=== PATIENT | female | born 1995 | race Caucasian/White ===

== ENCOUNTER 2017-07-26 05:08 | Inpatient (IN) | payer MEDICAID ==
[2017-07-26] MEDS: Lactated Ringers 1,000 ML IV SCH ×4 (06:40→12:18)
[2017-07-26] MEDS ORDERED: Water For Irrigation,Sterile 1,000 ML Container IRR PRN (06:49)
[2017-07-26] MEDS ORDERED: Methylergonovine 0.2 MG/1 ML Amp IM PRN (06:49)
[2017-07-26] MEDS ORDERED: Carboprost Tromethamine 250 MCG/1 ML Amp IM PRN (06:49)
[2017-07-26] MEDS ORDERED: Butorphanol 1 MG/ML SDV IVPUSH PRN (06:49)
[2017-07-26] MEDS ORDERED: Misoprostol 200 MCG Tab PO PRN (06:49)
[2017-07-26] MEDS ORDERED: Lidocaine 1% 50 ML MDV INJECT PRN (06:49)
[2017-07-26] MEDS ORDERED: Nalbuphine 10 MG/1 ML Vial IVPUSH PRN (06:49)
[2017-07-26] MEDS ORDERED: Sodium Chloride 0.9% 2.5 ML Syringe FLUSH PRN (06:49)
[2017-07-26] MEDS ORDERED: Sodium Chloride 0.9% 10 ML Syringe FLUSH PRN (06:49)
[2017-07-26] MEDS ORDERED: Oxytocin/0.9 % Sodium Chloride 30 UNIT/500 ML BAG IV SCH (07:00)
--- NOTE | 2017-07-26 07:44 | PCM.PREANE ---
Preanesthetic Assessment - Anesthesia/Transfusion/Family Hx Anesthesia History: Prior Anesthesia Without Reaction - Review of Systems General: No Symptoms Pulmonary: No Symptoms Cardiovascular: No Symptoms Gastrointestinal: No Symptoms Neurological: No Symptoms Other: Reports: None - Physical Assessment Height: 5 ft 2.5 in Weight: 77.111 kg ASA Class: 2 Mental Status: Alert & Oriented x3 Airway Class: Mallampati = 2 Dentition: Reports: Normal Dentition Thyro-Mental Finger Breadths: 3 Mouth Opening Finger Breadths: 3 ROM/Head Extension: Full Lungs: Clear to Auscultation, Normal Respiratory Effort Cardiovascular: Regular Rate, Regular Rhythm - Lab Values: Laboratory Last Values WBC 14.95 K/uL (4.0-11.0) H 07/26/17 06:49 RBC 4.27 M/uL (4.30-5.90) L 07/26/17 06:49 Hgb 12.5 g/dL (12.0-16.0) 07/26/17 06:49 Hct 37.3 % (36.0-46.0) 07/26/17 06:49 MCV 87.4 fL (80.0-98.0) 07/26/17 06:49 MCH 29.3 pg (27.0-32.0) 07/26/17 06:49 MCHC 33.5 g/dL (31.0-37.0) 07/26/17 06:49 RDW Std Deviation 44.3 fl (28.0-62.0) 07/26/17 06:49 RDW Coeff of [place] 14 % (11.0-15.0) 07/26/17 06:49 Plt Count 285 K/uL (150-400) 07/26/17 06:49 MPV 12.30 fL (7.40-12.00) H 07/26/17 06:49 Nucleated RBC % 0.0 /100WBC 07/26/17 06:49 Nucleated RBCs # 0 K/uL 07/26/17 06:49 - Allergies Allergies/Adverse Reactions: Allergies Allergy/AdvReac Type Severity Reaction Status Date / Time No Known Allergies Allergy Verified 05/02/14 15:57 - Acknowledgements Anesthesia Type Planned: Epidural Pt an Appropriate Candidate for the Planned Anesthesia: Yes Alternatives and Risks of Anesthesia Discussed w Pt/Guardian: Yes Pt/Guardian Understands and Agrees with Anesthesia Plan: Yes PreAnesthesia Questionnaire HEENT History: Reports: None Cardiovascular History: Reports: None Respiratory History: Reports: None Gastrointestinal History: Reports: GERD Genitourinary History: Reports: None SHACTOR History: Reports: LMP (Approximate): Musculoskeletal History: Reports: None Neurological History: Reports: None Psychiatric History: Reports: None Endocrine/Metabolic History: Reports: Obesity/BMI 30+ Hematologic History: Reports: None Immunologic History: Reports: None Oncologic (Cancer) History: Reports: None Dermatologic History: Reports: None - Infectious Disease History Infectious Disease History: Reports: None - CURRENT (IN HOUSE) MEDS Current Meds: Current Medications Butorphanol Tartrate (Stadol) 1 mg IVPUSH Q1H PRN PRN Reason: Pain Carboprost Tromethamine (Hemabate Ds) 250 mcg IM ASDIRECTED PRN PRN Reason: Post Hemorrhage Lactated Ringer's (Ringers, Lactated) 1,000 mls @ 150 mls/hr IV ASDIRECTED EMORY Oxytocin/Sodium Chloride (Oxytocin 30 Unit/500 Ml-Ns) 30 unit in 500 mls @ 500 mls/hr IV TITRATE EMORY Lidocaine HCl (Xylocaine 1%) 50 ml INJECT .ONCE PRN PRN Reason: Laceration repair Methylergonovine Maleate (Methergine) 0.2 mg IM ASDIRECTED PRN PRN Reason: Post Hemorrhage Misoprostol (Cytotec) 200 mcg PO .ONCE PRN PRN Reason: Post Hemorrhage Nalbuphine HCl (Nubain) 10 mg IVPUSH Q1H PRN PRN Reason: Pain (severe 7-10) Sodium Chloride (Saline Flush) 10 ml FLUSH ASDIRECTED PRN PRN Reason: Keep Vein Open Sodium Chloride (Saline Flush) 2.5 ml FLUSH ASDIRECTED PRN PRN Reason: Keep Vein Open Sterile Water (Sterile Water For Irrigation) 1,000 ml IRR ASDIRECTED PRN PRN Reason: delivery
[2017-07-26] MEDS ORDERED: Ropivacaine HCl/PF 100 ML ONE (07:45)
[2017-07-26] MEDS ORDERED: fentaNYL 100 MCG/2 ML SDV ONE (07:45)
[2017-07-26] MEDS ORDERED: Witch Hazel Medicated Pads 40/Jar TOP PRN (13:38)
[2017-07-26] MEDS ORDERED: Docusate Sodium 100 MG Cap PO PRN (13:38)
[2017-07-26] MEDS ORDERED: Aluminum Hydroxide/Magnesium Hydroxide/Simethicone Susp 30 ML Cup PO PRN (13:38)
[2017-07-26] MEDS ORDERED: Ibuprofen 400 MG Tab PO PRN (13:38)
[2017-07-26] MEDS ORDERED: Acetaminophen 500 MG Tab PO PRN ×2 (13:38)
[2017-07-26] MEDS ORDERED: Bisacodyl 10 MG Supp RECTAL PRN (13:38)
[2017-07-26] MEDS ORDERED: Lanolin 100% Cream 7 GM Tube TOP PRN (13:38)
[2017-07-26] MEDS ORDERED: Benzocaine/Menthol 20%-0.5% Spray 78 GM Cannister TOP PRN (13:38)
[2017-07-26] MEDS ORDERED: Ondansetron 4 MG/2 ML SDV IVPUSH PRN (13:38)
[2017-07-26] MEDS: Ibuprofen 800 MG Tab PO PRN (14:24)
[2017-07-26] MEDS: oxyCODONE 5 MG Tab PO PRN ×2 (17:43→20:56)
--- NOTE | 2017-07-26 18:08 | OR ---
SURGEON: Bhakti Luevano M.D. DATE OF PROCEDURE: 07/26/2017 PREOPERATIVE DIAGNOSES: 1. 39 and 1 week intrauterine . 2. Active labor. POSTOPERATIVE DIAGNOSES: 1. 39 and 1 week intrauterine . 2. Active labor. PROCEDURE: Spontaneous vaginal delivery, intact perineum. ESTIMATED BLOOD LOSS: 300 mL. ANESTHESIA: Epidural. COMPLICATIONS: None known. FINDINGS: Term male, score 8 at 1 minute, 9 at 5 minutes. Weight is pending. Spontaneous delivery, intact placenta, 3-vessel cord. DISPOSITION: Infant to nursery and mom in LDRP, stable. PROCEDURE DETAILS: Magalie is a 22-year-old G2, P1-0-0-1 at 39 and 1 week's gestation who presented on the morning of 07/26/2017 with regular contractions. On initial examination, she was found to be 4 cm. heart tones were 120s with variability. She was admitted and routine labs were drawn. She progressed to 7 cm within the hour, was requesting regional anesthesia. Underwent this satisfactorily and became more comfortable. She continued to progress through the morning hours and shortly after 11:00 a.m., was found to be complete, 100% effaced, 0 station. She is group B strep negative; therefore, amniotomy was performed. Clear fluid was returned. The patient then continued to progress to a +2 station, began pushing efforts, and pushed adequately. Once at a +3 station, I was called for delivery. Upon my arrival, the patient was placed in modified dorsal lithotomy position, prepped and draped in the usual aseptic manner. Continued with pushing efforts, was able to deliver the infant's head atraumatically spontaneously, followed by anterior shoulder, posterior shoulder, and remainder of body without difficulty. The infant's oropharynx and nares were bulb suctioned. Cord was clamped x2 and cut. was handed off to his mother with attending nursing staff at her side. Cord arterial, cord venous, cord blood sampling was obtained. Light suprapubic pressure was applied while the placenta was delivered spontaneously intact. Vigorous fundal uterine massage was then applied while 30 units of Pitocin was delivered in 500 mL of IV fluid. Upon inspection of cervix, vaginal sidewalls, and perineum, these were found to be intact. Uterus remained firm. Hemostasis was evident. Sponge count was correct. The patient will remain in LDRP and infant in nursery. WILL / OMAR /[id number]
[2017-07-27] MEDS: Ibuprofen 800 MG Tab PO PRN ×2 (01:28→10:05)
--- NOTE | 2017-07-27 07:14 | PCM48HPAN ---
Post Anesthesia Note - EVALUATION WITHIN 48HRS OF ANESTHETIC Vital Signs in Normal Range: Yes Patient Participated in Evaluation: Yes Respiratory Function Stable: Yes Airway Patent: Yes Cardiovascular Function Stable: Yes Hydration Status Stable: Yes Pain Control Satisfactory: Yes Nausea and Vomiting Control Satisfactory: Yes Mental Status Recovered: Yes
--- NOTE | 2017-07-27 08:15 | PCM.PNPP ---
- General Info Date of Service: 07/27/17 Functional Status: Reports: Pain Controlled, Tolerating Diet, Ambulating, Urinating - Review of Systems General: Reports: No Symptoms HEENT: Reports: No Symptoms Pulmonary: Reports: No Symptoms Cardiovascular: Reports: No Symptoms Gastrointestinal: Reports: No Symptoms Genitourinary: Reports: No Symptoms Musculoskeletal: Reports: No Symptoms Skin: Reports: No Symptoms Neurological: Reports: No Symptoms Psychiatric: Reports: No Symptoms - Patient Data Vital Signs - Most Recent: Last Vital Signs Temp 37 C 07/26/17 19:42 Pulse 85 07/26/17 19:42 Resp 20 07/26/17 19:42 BP 119/65 07/26/17 19:42 Pulse Ox 100 07/26/17 19:42 Weight - Most Recent: 77.111 kg Lab Results - Last 24 Hours: Laboratory Results - last 24 hr 07/27/17 Range/Units 05:15 Hgb 10.3 L (12.0-16.0) g/dL Hct 31.4 L (36.0-46.0) % Med Orders - Current: Current Medications Acetaminophen (Tylenol Extra Strength) 500 mg PO Q4H PRN PRN Reason: Pain Acetaminophen (Tylenol Extra Strength) 1,000 mg PO Q4H PRN PRN Reason: Pain Al Hydroxide/Mg Hydroxide (Mag-Al Plus) 30 ml PO Q8H PRN PRN Reason: Heartburn Benzocaine/Menthol (Dermoplast Pain Relief 20%-0.5% [place]) 78 gm TOP ASDIRECTED PRN PRN Reason: Perineal Comfort Measure Bisacodyl (Dulcolax) 10 mg RECTAL .ONCE PRN PRN Reason: Constipation Carboprost Tromethamine (Hemabate Ds) 250 mcg IM ASDIRECTED PRN PRN Reason: Post Hemorrhage Docusate Sodium (Colace) 100 mg PO BID PRN PRN Reason: Constipation Emollient Ointment (Lansinoh Hpa) 0 gm TOP ASDIRECTED PRN PRN Reason: Sore Nipples Lactated Ringer's (Ringers, Lactated) 1,000 mls @ 150 mls/hr IV ASDIRECTED EMORY Last Admin: 07/26/17 12:18 Dose: 150 mls/hr Oxytocin/Sodium Chloride (Oxytocin 30 Unit/500 Ml-Ns) 30 unit in 500 mls @ 500 mls/hr IV TITRATE EMORY Ibuprofen (Motrin) 400 mg PO Q4H PRN PRN Reason: Pain Ibuprofen (Motrin) 800 mg PO Q6H PRN PRN Reason: Pain Last Admin: 07/27/17 01:28 Dose: 800 mg Methylergonovine Maleate (Methergine) 0.2 mg IM ASDIRECTED PRN PRN Reason: Post Hemorrhage Misoprostol (Cytotec) 200 mcg PO .ONCE PRN PRN Reason: Post Hemorrhage Ondansetron HCl (Zofran) 4 mg IVPUSH Q6H PRN PRN Reason: Nausea/Vomiting Oxycodone HCl (Oxycodone) 5 mg PO Q2H PRN PRN Reason: Pain Last Admin: 07/26/17 20:56 Dose: 5 mg Sodium Chloride (Saline Flush) 10 ml FLUSH ASDIRECTED PRN PRN Reason: Keep Vein Open Sodium Chloride (Saline Flush) 2.5 ml FLUSH ASDIRECTED PRN PRN Reason: Keep Vein Open Witch Kristie (Tucks) 1 pad TOP ASDIRECTED PRN PRN Reason: comfort care Discontinued Medications Butorphanol Tartrate (Stadol) 1 mg IVPUSH Q1H PRN PRN Reason: Pain Fentanyl (Sublimaze) Confirm Administered Dose 100 mcg .ROUTE .STK-MED ONE Stop: 07/26/17 07:46 Ropivacaine (Naropin 0.2%) Confirm Administered Dose 100 mls @ as directed .ROUTE .STK-MED ONE Stop: 07/26/17 07:46 Lidocaine HCl (Xylocaine 1%) 50 ml INJECT .ONCE PRN PRN Reason: Laceration repair Nalbuphine HCl (Nubain) 10 mg IVPUSH Q1H PRN PRN Reason: Pain (severe 7-10) Sterile Water (Sterile Water For Irrigation) 1,000 ml IRR ASDIRECTED PRN PRN Reason: delivery Last Admin: 07/26/17 13:10 Dose: 1,000 ml - Interaction Disposition, : [place] to Nursery Feeding: Breastfed Infant; Nursed Well Support Person: Mother, Significant Other - Recovery Exam Fundal Tone: Firm Fundal Level: 1 Fingerbreadths Below Umbilicus Fundal Placement: Midline Lochia Amount: Scant Lochia Color: Rubra/Red Perineum Description: Intact, Minimal Bruising/Swelling Episiotomy/Laceration: None Bladder Status: Voiding Urinary Elimination: Voided - Exam General: Alert, Oriented Neck: Supple Lungs: Normal Respiratory Effort GI/Abdominal Exam: Soft, Non-Tender, No Organomegaly, No Distention Extremities: Normal Inspection, Non-Tender, No Pedal Edema Skin: Warm, Dry, Intact Neurological: No New Focal Deficit Psy/Mental Status: Alert, Normal Affect, Normal Mood - Problem List & Annotations (1) Vaginal delivery SNOMED Code(s): 925752444 Code(s): O80 - ENCOUNTER FOR FULL-TERM UNCOMPLICATED DELIVERY Status: Acute Current Visit: Yes - Problem List Review Problem List Initiated/Reviewed/Updated: Yes - Assessment Assessment:: PPD#1 after , stable, minimal lochia, minimal pain. well. Anticipate discharge this afternoon - Plan Plan:: Discharge instructions reviewed, she may use ibuprofen as needed for pain, cramping. Continue vitamins while .
[2017-07-27] MEDS: oxyCODONE 5 MG Tab PO PRN (14:22)
== END 2017-07-27 16:20 | disposition home or self-care (01) | DRG 775 ==
LOC: MW.OBCHECK 05:08 → MW.OB 05:09 → MW.OBCHECK 06:49 → MW.OB 06:49 → OBSVTOIN 13:16
PROVIDERS: ADMIT Obstetrics & Gynecology; ATTEND Obstetrics & Gynecology
PROC: 10E0XZZ Delivery of Products of Conception, External Approach (ICD-10-PCS; principal; 2017-07-26)
PROC: 10907ZC Drainage of Amniotic Fluid, Therapeutic from Products of Conception, Via Natural or Artificial Opening (ICD-10-PCS; 2017-07-26)
DX: O80 Encounter for full-term uncomplicated delivery (principal); Z3A.39 39 weeks gestation of pregnancy; Z37.0 Single live birth
CPT/HCPCS: 36415; 51702; 59025; 59409; 85014; 85018; 85027; 86850; 86900; 86901; A9270-GY; J2795; J3010; J7120

== ENCOUNTER 2018-10-23 17:46 | Emergency (ER) | payer MEDICAID ==
[2018-10-23] MEDS ORDERED: Sodium Chloride 0.9% 10 ML Syringe FLUSH PRN (18:03)
[2018-10-23] MEDS ORDERED: Sodium Chloride 0.9% 1,000 ML IV ONE (18:03)
[2018-10-23] MEDS ORDERED: Ondansetron 4 MG/2 ML SDV IVPUSH ONE (18:03)
[2018-10-23] MEDS ORDERED: Sodium Chloride 0.9% 2.5 ML Syringe FLUSH PRN (18:03)
--- NOTE | 2018-10-23 18:08 | EDM.PDOC ---
ED HPI GENERAL MEDICAL PROBLEM - General Chief Complaint: Headache Stated Complaint: VOMITING Time Seen by Provider: 10/23/18 18:07 Source of Information: Reports: Patient History Limitations: Reports: No Limitations - History of Present Illness INITIAL COMMENTS - FREE TEXT/NARRATIVE: HISTORY AND PHYSICAL: History of present illness: Patient is a 23-year-old male here with complaint of headache and vomiting. She states she has a history of migraines. She states her headache is getting better but she has not been able to keep anything down today and feels dehydrated. She denies visual changes, head injury, abdominal pain, diarrhea. Review of systems: As per history of present illness and below otherwise all systems reviewed and negative. Past medical history: As per history of present illness and as reviewed below otherwise noncontributory. Surgical history: As per history of present illness and as reviewed below otherwise noncontributory. Social history: No reported history of drug or alcohol abuse. Family history: As per history of present illness and as reviewed below otherwise noncontributory. Physical exam: General: Patient sitting comfortably in no acute distress and nontoxic appearing HEENT: Atraumatic, normocephalic, pupils reactive, negative for conjunctival pallor or scleral icterus, mucous membranes moist, throat clear, neck supple, nontender, trachea midline. No meningeal signs. Lungs: Clear to auscultation, breath sounds equal bilaterally, chest nontender. Heart: S1S2, regular, negative for clicks, rubs, or overt murmur. Abdomen: Soft, nondistended, nontender. Negative for masses or hepatosplenomegaly. Negative for costovertebral tenderness. Pelvis: Stable nontender. Genitourinary: Deferred. Rectal: Deferred. Extremities: Atraumatic, negative for cords or calf pain. Neurovascular unremarkable. Neuro: Awake, alert, oriented. Cranial nerves II through XII unremarkable. Cerebellum unremarkable. Motor and sensory unremarkable throughout. Exam nonfocal. Notes: Diagnostics: None Therapeutics: 1L NS IV 4mg Zofran IV 10mg Reglan IV Prescriptions: Impression: Headache, vomiting Plan: 1. Drink plenty of fluids. Alternate tylenol and motrin as needed. 2. Follow up with primary care provider 3. Return to ED as needed as discussed Definitive disposition and diagnosis as appropriate pending reevaluation and review of above. 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: Musculoskeletal History: Reports: None Neurological History: Reports: Migraines Psychiatric History: Reports: None Endocrine/Metabolic History: Reports: Obesity/BMI 30+ Hematologic History: Reports: None Immunologic History: Reports: None Oncologic (Cancer) History: Reports: None Dermatologic History: Reports: None - Infectious Disease History Infectious Disease History: Reports: None Social & Family History - Family History Family Medical History: Noncontributory - Tobacco Use Smoking Status *Q: Never Smoker - Caffeine Use Caffeine Use: Reports: Coffee - Recreational Drug Use Recreational Drug Use: No ED ROS GENERAL - Review of Systems Review Of Systems: ROS reveals no pertinent complaints other than HPI. - Physical Exam Exam: See Below (see dictation) Course - Vital Signs Last Recorded V/S: Last Vital Signs Temp 97.5 F 10/23/18 17:58 Pulse 115 H 10/23/18 17:58 Resp 18 10/23/18 17:58 BP 120/77 10/23/18 17:58 Pulse Ox 99 10/23/18 17:58 - Orders/Labs/Meds Orders: Active Orders 24 hr Category Date Time Status Sodium Chloride 0.9% [Saline Flush] Med 10/23/18 18:03 Active 10 ml FLUSH ASDIRECTED PRN Sodium Chloride 0.9% [Saline Flush] Med 10/23/18 18:03 Active 2.5 ml FLUSH ASDIRECTED PRN Saline Lock Insert [OM.PC] Stat Oth 10/23/18 18:03 Ordered Medication Orders Sodium Chloride (Saline Flush) 10 ml FLUSH ASDIRECTED PRN PRN Reason: Keep Vein Open Sodium Chloride (Saline Flush) 2.5 ml FLUSH ASDIRECTED PRN PRN Reason: Keep Vein Open Meds: Medications Generic Name Dose Route Start Last Admin Trade Name Freq PRN Reason Stop Dose Admin Sodium Chloride 10 ml 10/23/18 18:03 Saline Flush FLUSH ASDIRECTED PRN Keep Vein Open Sodium Chloride 2.5 ml 10/23/18 18:03 Saline Flush FLUSH ASDIRECTED PRN Keep Vein Open Discontinued Medications Generic Name Dose Route Start Last Admin Trade Name Lorena PRN Reason Stop Dose Admin Sodium Chloride 1,000 mls @ 999 mls/hr 10/23/18 18:03 10/23/18 18:17 Normal Saline IV 10/23/18 19:03 999 mls/hr STAT ONE Administration Metoclopramide HCl 10 mg 10/23/18 18:56 10/23/18 19:05 Reglan IV 10/23/18 18:57 10 mg ONETIME ONE Administration Ondansetron HCl 4 mg 10/23/18 18:03 10/23/18 18:17 Zofran IVPUSH 10/23/18 18:04 4 mg ONETIME ONE Administration Departure - Departure Time of Disposition: 19:09 Disposition: Home, Self-Care 01 Condition: Good Clinical Impression: Headache, Vomiting - Discharge Information Referrals: Ulises Valdez MD [Primary Care Provider] - Forms: ED Department Discharge Additional Instructions: The following information is given to patients seen in the emergency department who are being discharged to home. This information is to outline your options for follow-up care. We provide all patients seen in our emergency department with a follow-up referral. The need for follow-up, as well as the timing and circumstances, are variable depending upon the specifics of your emergency department visit. If you don't have a primary care physician on staff, we will provide you with a referral. We always advise you to contact your personal physician following an emergency department visit to inform them of the circumstance of the visit and for follow-up with them and/or the need for any referrals to a consulting specialist. The emergency department will also refer you to a specialist when appropriate. This referral assures that you have the opportunity for follow-up care with a specialist. All of these measure are taken in an effort to provide you with optimal care, which includes your follow-up. Under all circumstances we always encourage you to contact your private physician who remains a resource for coordinating your care. When calling for follow-up care, please make the office aware that this follow-up is from your recent emergency room visit. If for any reason you are refused follow-up, please contact the [facility] Emergency Department at and asked to speak to the emergency department charge nurse. TIGIST Mcginnis [facility] [address] [place] [address] [facility] [address] [place] [address] 1. Drink plenty of fluids. Alternate tylenol and motrin as needed. 2. Follow up with primary care provider 3. Return to ED as needed as discussed - My Orders Last 24 Hours: My Active Orders 10/23/18 18:03 Sodium Chloride 0.9% [Saline Flush] 10 ml FLUSH ASDIRECTED PRN Sodium Chloride 0.9% [Saline Flush] 2.5 ml FLUSH ASDIRECTED PRN Saline Lock Insert [OM.PC] Stat - Assessment/Plan Last 24 Hours: My Active Orders 10/23/18 18:03 Sodium Chloride 0.9% [Saline Flush] 10 ml FLUSH ASDIRECTED PRN Sodium Chloride 0.9% [Saline Flush] 2.5 ml FLUSH ASDIRECTED PRN Saline Lock Insert [OM.PC] Stat
[2018-10-23] MEDS ORDERED: Metoclopramide 10 MG/2 ML SDV IV ONE (18:56)
== END 2018-10-23 19:20 | disposition home or self-care (01) ==
LOC: MW.ED 17:46
DX: R51 Headache (principal); R11.10 Vomiting, unspecified
CPT/HCPCS: 96361; 96374; 96375; 99283; J2405; J2765; J7040

== ENCOUNTER 2018-11-13 11:04 | Emergency (ER) | payer MEDICAID ==
[2018-11-13] MEDS ORDERED: Ondansetron 4 MG/2 ML SDV IVPUSH ONE (11:19)
[2018-11-13] MEDS ORDERED: Sodium Chloride 0.9% 1,000 ML IV ONE (11:19)
--- NOTE | 2018-11-13 11:23 | EDM.PDOC ---
ED HPI GENERAL MEDICAL PROBLEM - General Chief Complaint: Gastrointestinal Problem Stated Complaint: STOMACH BUG Time Seen by Provider: 11/13/18 11:14 - History of Present Illness INITIAL COMMENTS - FREE TEXT/NARRATIVE: HISTORY AND PHYSICAL: History of present illness: Patient is a 23-year-old white female presented to a concern of nausea vomiting and dehydration she states her has had the same thing recently but has improved. She denies fever chills or other concern. Review of systems: As per history of present illness and below otherwise all systems reviewed and negative. Past medical history: As per history of present illness and as reviewed below otherwise noncontributory. Surgical history: As per history of present illness and as reviewed below otherwise noncontributory. Social history: No reported history of drug or alcohol abuse. Family history: As per history of present illness and as reviewed below otherwise noncontributory. Physical exam: HEENT: Atraumatic, normocephalic, pupils reactive, negative for conjunctival pallor or scleral icterus, mucous membranes dry, throat clear, neck supple, nontender, trachea midline. Lungs: Clear to auscultation, breath sounds equal bilaterally, chest nontender. Heart: S1S2, regular, negative for clicks, rubs, or JVD. Abdomen: Soft, nondistended, nontender. Negative for masses or hepatosplenomegaly. Negative for costovertebral tenderness. Pelvis: Stable nontender. Genitourinary: Deferred. Rectal: Deferred. Extremities: Atraumatic, negative for cords or calf pain. Neurovascular unremarkable. Neuro: Awake, alert, oriented. Cranial nerves II through XII unremarkable. Cerebellum unremarkable. Motor and sensory unremarkable throughout. Exam nonfocal. Diagnostics: CBC CMP hCG UA lipase Therapeutics: Saline 1 L bolus Zofran 4 mg IV Impression: #1 vomiting with dehydration Definitive disposition and diagnosis as appropriate pending reevaluation and review of above. Middle Abdomen Pain Score (Numeric/FACES): 7 - Related Data Allergies Allergy/AdvReac Type Severity Reaction Status Date / Time No Known Allergies Allergy Verified 11/13/18 11:11 Home Meds: Home Meds . 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: Musculoskeletal History: Reports: None Neurological History: Reports: Migraines Psychiatric History: Reports: None Endocrine/Metabolic History: Reports: Obesity/BMI 30+ Hematologic History: Reports: None Immunologic History: Reports: None Oncologic (Cancer) History: Reports: None Dermatologic History: Reports: None - Infectious Disease History Infectious Disease History: Reports: None Social & Family History - Family History Family Medical History: Noncontributory - Tobacco Use Smoking Status *Q: Never Smoker Second Hand Smoke Exposure: No - Caffeine Use Caffeine Use: Reports: Coffee - Recreational Drug Use Recreational Drug Use: No ED ROS GENERAL - Review of Systems Review Of Systems: ROS reveals no pertinent complaints other than HPI. ED EXAM, GENERAL - Physical Exam Exam: See Below (See dictation) Course - Vital Signs Last Recorded V/S: Last Vital Signs Temp 36.3 C 11/13/18 11:11 Pulse 99 11/13/18 11:11 Resp 18 11/13/18 11:11 BP 115/74 11/13/18 11:11 Pulse Ox 100 11/13/18 11:11 - Orders/Labs/Meds Orders: Active Orders 24 hr Category Date Time Status Sodium Chloride 0.9% [Normal Saline] 1,000 ml Med 11/13/18 11:19 Active IV STAT Medication Orders Sodium Chloride (Normal Saline) 1,000 mls @ 999 mls/hr IV STAT ONE Stop: 11/13/18 12:19 Last Admin: 11/13/18 11:33 Dose: 999 mls/hr Labs: Laboratory Tests 11/13/18 11/13/18 11/13/18 Range/Units 11:30 11:30 11:30 WBC 9.69 (4.0-11.0) K/uL RBC 5.11 (4.30-5.90) M/uL Hgb 14.8 (12.0-16.0) g/dL Hct 42.7 (36.0-46.0) % MCV 83.6 (80.0-98.0) fL MCH 29.0 (27.0-32.0) pg MCHC 34.7 (31.0-37.0) g/dL RDW Std Deviation 40.0 (28.0-62.0) fl RDW Coeff of [place] 13 (11.0-15.0) % Plt Count 370 (150-400) K/uL MPV 11.60 (7.40-12.00) fL Neut % (Auto) 90.7 H (48.0-80.0) % Lymph % (Auto) 6.0 L (16.0-40.0) % [place] % (Auto) 3.2 (0.0-15.0) % Eos % (Auto) 0.0 (0.0-7.0) % Baso % (Auto) 0.1 (0.0-1.5) % Neut # (Auto) 8.8 H (1.4-5.7) K/uL Lymph # (Auto) 0.6 (0.6-2.4) K/uL [place] # (Auto) 0.3 (0.0-0.8) K/uL Eos # (Auto) 0.0 (0.0-0.7) K/uL Baso # (Auto) 0.0 (0.0-0.1) K/uL Nucleated RBC % 0.0 /100WBC Nucleated RBCs # 0 K/uL Sodium 140 (136-145) mmol/L Potassium 4.1 (3.5-5.1) mmol/L Chloride 103 (98-107) mmol/L Carbon Dioxide 22.0 (21.0-32.0) mmol/L BUN 16 (7.0-18.0) mg/dL Creatinine 0.9 (0.6-1.0) mg/dL Est Cr Clr Drug Dosing 79.04 mL/min Estimated GFR (MDRD) > 60.0 ml/min Glucose 97 (74-106) mg/dL Calcium 9.2 (8.5-10.1) mg/dL Total Bilirubin 0.5 (0.2-1.0) mg/dL AST 11 L (15-37) IU/L ALT 20 (14-63) IU/L Alkaline Phosphatase 67 (46-116) U/L Total Protein 7.5 (6.4-8.2) g/dL Albumin 4.2 (3.4-5.0) g/dL Globulin 3.3 (2.6-4.0) g/dL Albumin/Globulin Ratio 1.3 (0.9-1.6) Lipase 68 L (73-393) U/L HCG, Qual NEGATIVE (NEG) Meds: Medications Generic Name Dose Route Start Last Admin Trade Name Freq PRN Reason Stop Dose Admin Sodium Chloride 1,000 mls @ 999 mls/hr 11/13/18 11:19 11/13/18 11:33 Normal Saline IV 11/13/18 12:19 999 mls/hr STAT ONE Administration Discontinued Medications Generic Name Dose Route Start Last Admin Trade Name Freq PRN Reason Stop Dose Admin Ondansetron HCl 4 mg 11/13/18 11:19 11/13/18 11:32 Zofran IVPUSH 11/13/18 11:20 4 mg ONETIME ONE Administration Departure - Departure Time of Disposition: 12:14 Disposition: Home, Self-Care 01 Condition: Good Clinical Impression: Vomiting, Dehydration - Discharge Information Referrals: Ulises Valdez MD [Primary Care Provider] - Forms: ED Department Discharge Additional Instructions: The following information is given to patients seen in the emergency department who are being discharged to home. This information is to outline your options for follow-up care. We provide all patients seen in our emergency department with a follow-up referral. The need for follow-up, as well as the timing and circumstances, are variable depending upon the specifics of your emergency department visit. If you don't have a primary care physician on staff, we will provide you with a referral. We always advise you to contact your personal physician following an emergency department visit to inform them of the circumstance of the visit and for follow-up with them and/or the need for any referrals to a consulting specialist. The emergency department will also refer you to a specialist when appropriate. This referral assures that you have the opportunity for followup care with a specialist. All of these measure are taken in an effort to provide you with optimal care, which includes your followup. Under all circumstances we always encourage you to contact your private physician who remains a resource for coordinating your care. When calling for followup care, please make the office aware that this follow-up is from your recent emergency room visit. If for any reason you are refused follow-up, please contact the [facility] emergency department at and asked to speak to the emergency department charge nurse. Zofran as prescribed clear liquids 24 hours avoid dairy 72 hours follow primary medical doctor as needed as discussed and return as needed as discussed - My Orders Last 24 Hours: My Active Orders 11/13/18 11:19 Sodium Chloride 0.9% [Normal Saline] 1,000 ml IV STAT - Assessment/Plan Last 24 Hours: My Active Orders 11/13/18 11:19 Sodium Chloride 0.9% [Normal Saline] 1,000 ml IV STAT
[2018-11-13 12:01] LABS: CHLORIDE,CL 103 mmol/L (98-107); SODIUM,NA 140 mmol/L (136-145)
== END 2018-11-13 12:32 | disposition home or self-care (01) ==
LOC: MW.ED 11:04
DX: E86.0 Dehydration (principal); R11.2 Nausea with vomiting, unspecified
CPT/HCPCS: 36415; 80053; 83690; 84703; 85025; 96361; 96374; 99284; J2405; J7040; 99282

== ENCOUNTER 2018-12-30 09:55 | Day surgery (SDC) | payer MEDICAID ==
[~2018-12-30 09:55] MED LIST: Lactated Ringers 1,000 ML IV SCH; Midazolam 1 MG/ML 2 ML SDV ONE; Ondansetron 4 MG/2 ML SDV ONE; Propofol 200 MG/20 ML SDV ONE; Sodium Chloride 0.9% 10 ML SDV IV PRN; Sodium Chloride 0.9% 10 ML Syringe FLUSH PRN; Sodium Chloride 0.9% 2.5 ML Syringe FLUSH PRN; cefOXitin 2 GM in Premix Bag 1 BAG IV ONE; fentaNYL 100 MCG/2 ML SDV ONE
--- NOTE | 2018-12-30 10:32 | PCM.PREANE ---
Preanesthetic Assessment - Anesthesia/Transfusion/Family Hx Anesthesia History: Prior Anesthesia Without Reaction Family History of Anesthesia Reaction: No Transfusion History: No Prior Transfusion(s) Intubation History: Unknown - Review of Systems General: No Symptoms Pulmonary: No Symptoms Cardiovascular: No Symptoms Gastrointestinal: No Symptoms Neurological: No Symptoms Other: Reports: None - Physical Assessment Height: 1.6 m Weight: 64.864 kg ASA Class: 2 Mental Status: Alert & Oriented x3 Airway Class: Mallampati = 1 Dentition: Reports: Normal Dentition, Progress(s) (left lower (back)) Thyro-Mental Finger Breadths: 3 Mouth Opening Finger Breadths: 3 ROM/Head Extension: Full Lungs: Clear to Auscultation, Normal Respiratory Effort Cardiovascular: Regular Rate, Regular Rhythm - Lab Values: Laboratory Last Values Urine HCG, Qual NEGATIVE (NEGATIVE) 12/30/18 10:11 - Allergies Allergies/Adverse Reactions: Allergies Allergy/AdvReac Type Severity Reaction Status Date / Time No Known Allergies Allergy Verified 12/27/18 11:39 - Blood Blood Available: No - Anesthesia Plan Pre-Op Medication Ordered: None - Acknowledgements Anesthesia Type Planned: General Anesthesia Pt an Appropriate Candidate for the Planned Anesthesia: Yes Alternatives and Risks of Anesthesia Discussed w Pt/Guardian: Yes Pt/Guardian Understands and Agrees with Anesthesia Plan: Yes PreAnesthesia Questionnaire - Past Health History Medical/Surgical History: Denies Medical/Surgical History HEENT History: Reports: None Cardiovascular History: Reports: None Respiratory History: Reports: Asthma, Other (See Below) Other Respiratory History: "mild asthma" Gastrointestinal History: Reports: Other (See Below) Other Gastrointestinal History: biliary dyskinesia Genitourinary History: Reports: None 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: Musculoskeletal History: Reports: None Neurological History: Reports: None Psychiatric History: Reports: Anxiety, Depression Endocrine/Metabolic History: Reports: None Hematologic History: Reports: None Immunologic History: Reports: None Oncologic (Cancer) History: Reports: None Dermatologic History: Reports: None - Infectious Disease History Infectious Disease History: Reports: None - Past Surgical History Head Surgeries/Procedures: Reports: None HEENT Surgical History: Reports: None Cardiovascular Surgical History: Reports: None Respiratory Surgical History: Reports: None GI Surgical History: Reports: None Female Surgical History: Reports: Breast Implant Endocrine Surgical History: Reports: None Neurological Surgical History: Reports: None Dermatological Surgical History: Reports: None - SUBSTANCE USE Smoking Status *Q: Former Smoker (quit 1 1/2 ago) Recreational Drug Use History: No - HOME MEDS Home Medications: Home Meds Promethazine HCl 1 tab PO Q6H PRN 12/27/18 [History] - CURRENT (IN HOUSE) MEDS Current Meds: Current Medications Lactated Ringer's (Ringers, Lactated) 1,000 mls @ 125 mls/hr IV ASDIRECTED [facility] Sodium Chloride (Saline Flush) 10 ml FLUSH ASDIRECTED PRN PRN Reason: Keep Vein Open Sodium Chloride (Saline Flush) 2.5 ml FLUSH ASDIRECTED PRN PRN Reason: Keep Vein Open Sodium Chloride (Normal Saline) 10 ml IV ASDIRECTED PRN PRN Reason: IV Use Discontinued Medications Fentanyl (Sublimaze) Confirm Administered Dose 100 mcg .ROUTE .STK-MED ONE Stop: 12/30/18 09:16 Cefoxitin Sodium 2 gm/ Premix 50 mls @ 100 mls/hr IV ONETIME ONE Stop: 12/27/18 09:24 Lidocaine HCl (Xylocaine-Mpf 1%) Confirm Administered Dose 5 mls @ as directed .ROUTE .STK-MED ONE Stop: 12/30/18 09:16 Midazolam HCl (Versed 1 Mg/Ml) Confirm Administered Dose 2 mg .ROUTE .STK-MED ONE Stop: 12/30/18 09:16 Ondansetron HCl (Zofran) Confirm Administered Dose 4 mg .ROUTE .STK-MED ONE Stop: 12/30/18 09:16 Propofol (Diprivan 20 Ml) Confirm Administered Dose 200 mg .ROUTE .STK-MED ONE Stop: 12/30/18 09:16
[2018-12-30] MEDS ORDERED: Bupivacaine 0.5% 30 ML SDV ONE (10:56)
[2018-12-30] MEDS ORDERED: ceFAZolin/Dextrose,Iso-Osmotic 2 GM/50 ML Duplex Bag IV ONE (11:18)
[2018-12-30] MEDS ORDERED: Rocuronium 100 MG/10 ML Syringe ONE (11:22)
[2018-12-30] MEDS ORDERED: Ketorolac 30 MG/ML SDV ONE (12:26)
[2018-12-30] MEDS ORDERED: fentaNYL 100 MCG/2 ML SDV ONE (12:26)
--- NOTE | 2018-12-30 13:24 | PCM.OPNOTE ---
- General Post-Op/Procedure Note Date of Surgery/Procedure: 12/30/18 Operative Procedure(s): laproscopic cholecystecomy Findings: normal gallbladder Pre Op Diagnosis: biliary dyskinesia Post-Op Diagnosis: same Anesthesia Technique: General ET Tube Primary Surgeon: Marichuy [employer] Skills: Brianna Rausch Pathology: gallbladder Fluid Replacement, Intraop: 1,200 Output, Urine Amount: 40 EBL in mLs: 10 Condition: Good Free Text/Narrative:: Intake & Output 12/29/18 12/30/18 12/30/18 22:59 06:59 14:59 Output Total 40 Balance -40
[2018-12-30] MEDS ORDERED: oxyCODONE 5 MG Tab PO PRN (13:57)
[2018-12-30] MEDS ORDERED: Acetaminophen/HYDROcodone 325-5 MG Tab PO PRN (13:58)
[2018-12-30] MEDS ORDERED: fentaNYL 100 MCG/2 ML SDV IVPUSH PRN (13:59)
[2018-12-30] MEDS ORDERED: Acetaminophen 1,000 MG in Premix Bag 1 BAG IV ONE (14:24)
[2018-12-30] MEDS ORDERED: Promethazine 25 MG/ML SDV IM ONE (14:25)
--- NOTE | 2018-12-30 21:56 | OR ---
SURGEON: MARICHUY JESUS MD DATE OF PROCEDURE: 12/30/2018 PREOPERATIVE DIAGNOSIS: Biliary dyskinesia. POSTOPERATIVE DIAGNOSIS: Biliary dyskinesia. PROCEDURE PERFORMED: Laparoscopic cholecystectomy. PRIMARY SURGEON: Marichuy Jesus MD. STOREHOUSE CLERK: assistant bookkeeper: Dr. Brianna Rausch, Contact Lens Flashing Puncher. FLUIDS: 1200 mL of crystalloid. URINE OUTPUT: 40 mL. EBL: 10 mL. FINDINGS: Normal-appearing gallbladder. COMPLICATIONS: None. INDICATIONS: The patient is a 23-year-old female who presents with biliary dyskinesia. I explained the need for a cholecystectomy. I will attempt it laparoscopically, but she understands that should I unable to perform it safely, I will convert it to open. We discussed the expected perioperative course as well as the risks including bleeding, infection, or damage to surrounding structures. The patient verbalized understanding and wishes to proceed. PROCEDURE IN DETAIL: The patient was brought into the OR and placed on the OR table in supine position. A time-out was completed verifying the patient's name, age, date of , allergies, and procedure to be performed. General endotracheal anesthesia was induced. The Joya catheter was placed in the left arm and was tucked to the patient's side. The abdomen was prepped and draped in usual standard fashion. I anesthetized the infraumbilical fold with 0.5% Marcaine plain. An 11 blade was used to make an incision along this fold. Cautery was used to dissect down to the level of subcutaneous fat. I bluntly dissected down to the level of fascia. The fascia was elevated with Christiane's and incised sharply with the curved Ford scissors. I then swept away the rectus muscle and grasped the posterior rectus sheath with a hemostat. This was opened with a curved Ford scissors as well. I then identified the peritoneum. With simple blunt dissection, this fell away and I noted small bowel underneath my incision. A 12 mm David trocar was placed in the abdomen and the abdomen insufflated to a pressure of 12 mmHg. A 5 mm 30 degree scope was inserted and I inspected the area underneath my initial trocar placement. No damage to surrounding structures was noted. The patient was placed into reverse Trendelenburg position and airplaned slightly to the left. 5 mm trocars were placed in the following locations under direct visualization; one in the epigastric area, one in the right flank, and one 2 fingerbreadths below the right subcostal margin along the midclavicular line. The dome of the gallbladder was grasped with an atraumatic grasper and lifted cranially. This exposed the infundibulum. The gallbladder itself appeared normal and there were no attachments to any of the surrounding structures. Using hook cautery as well as gentle blunt dissection, I began dissection along the infundibulum. I identified the node of Calot. I dissected out my cystic duct and artery, then cleared away the proximal one- third of the cystic plate. A photograph was taken once I reached my critical view. I doubly clipped and ligated the cystic duct and artery. Using hook cautery, I then continued my dissection up the gallbladder fossa. Once the gallbladder was freed up from its attachments on the liver bed, it was placed in an EndoCatch bag and removed through the infraumbilical port site. The 12 mm David trocar was reinserted. I inspected my operative field. The clips appeared to be in good position with good hemostasis and no evidence of bile leakage. A photograph was taken. The 5 mm trocars were then removed under direct visualization and the abdomen allowed to desufflate. The 12 mm trocar was removed as well. The fascia at the infraumbilical port site was closed with interrupted 0 Vicryl sutures. The subcutaneous fat layer was closed with interrupted 3-0 Vicryl sutures. The skin was closed with a running 4-0 Monocryl stitch. The 5 mm trocar sites were closed with interrupted 4-0 Monocryl sutures. Steri-Strips and sterile dressings were applied. The patient tolerated the procedure well and was taken to PACU in stable condition. DIONNE NELSON /[id number]
== END 2018-12-30 16:15 | disposition home or self-care (01) ==
LOC: MW.SDS 09:55
PROVIDERS: ATTEND Surgery
DX: K81.2 Acute cholecystitis with chronic cholecystitis (principal); J45.20 Mild intermittent asthma, uncomplicated; F41.9 Anxiety disorder, unspecified; F32.9 Major depressive disorder, single episode, unspecified; Z87.891 Personal history of nicotine dependence
CPT/HCPCS: 47562; 81025; A9270; J0131; J1885; J2001; J2250; J2405; J2704; J3010; J3490; J7120; 88304

== ENCOUNTER 2020-03-05 05:07 | Inpatient (IN) | payer BC ==
[2020-03-05] MEDS ORDERED: Sodium Chloride 0.9% 10 ML Syringe FLUSH PRN (06:16)
[2020-03-05] MEDS ORDERED: Methylergonovine 0.2 MG/1 ML Amp IM PRN ×2 (06:16→12:01)
[2020-03-05] MEDS ORDERED: Ondansetron 4 MG/2 ML SDV IVPUSH PRN (06:16)
[2020-03-05] MEDS ORDERED: Nalbuphine 10 MG/1 ML Vial IVPUSH PRN (06:16)
[2020-03-05] MEDS ORDERED: Water For Irrigation,Sterile 1,000 ML Container IRR PRN (06:16)
[2020-03-05] MEDS ORDERED: Carboprost Tromethamine 250 MCG/1 ML Amp IM PRN (06:16)
[2020-03-05] MEDS ORDERED: Misoprostol 200 MCG Tab PO PRN (06:16)
[2020-03-05] MEDS ORDERED: Tranexamic Acid 1,000 MG in Sodium Chloride 0.9% 100 ML IV PRN (06:16)
[2020-03-05] MEDS ORDERED: Butorphanol 1 MG/ML SDV IVPUSH PRN (06:16)
[2020-03-05] MEDS ORDERED: Sodium Chloride 0.9% 10 ML SDV IV PRN (06:16)
[2020-03-05] MEDS ORDERED: Sodium Chloride 0.9% 2.5 ML Syringe FLUSH PRN (06:16)
[2020-03-05] MEDS ORDERED: Lidocaine 1% 50 ML MDV INJECT PRN (06:16)
[2020-03-05] MEDS ORDERED: Oxytocin/0.9 % Sodium Chloride 30 UNIT/500 ML BAG IV SCH (06:30)
[2020-03-05] MEDS: Lactated Ringers 1,000 ML IV SCH ×2 (07:20→10:33)
[2020-03-05] MEDS ORDERED: fentaNYL 100 MCG/2 ML SDV ONE (07:40)
[2020-03-05] MEDS ORDERED: Bupivicaine/fentaNYL/NS 250 ML ONE (07:41)
[2020-03-05] MEDS ORDERED: Bupivacaine 0.5% 10 ML SDV ONE (07:42)
[2020-03-05] MEDS ORDERED: Acetaminophen 500 MG Tab PO PRN (12:01)
[2020-03-05] MEDS ORDERED: Bisacodyl 10 MG Supp RECTAL PRN (12:01)
[2020-03-05] MEDS ORDERED: Ibuprofen 400 MG Tab PO PRN (12:01)
[2020-03-05] MEDS ORDERED: Benzocaine/Menthol 20%-0.5% Spray 78 GM Cannister TOP PRN (12:01)
[2020-03-05] MEDS ORDERED: Docusate Sodium 100 MG Cap PO PRN (12:01)
[2020-03-05] MEDS ORDERED: Witch Hazel Medicated Pads 40/Jar TOP PRN (12:01)
[2020-03-05] MEDS ORDERED: Lanolin 100% Cream 7 GM Tube TOP PRN (12:01)
--- NOTE | 2020-03-05 12:07 | PCM.DEL ---
L & D Note - General Info Date of Service: 03/05/20 Mother's Due Date: 03/09/20 - Delivery Note Labor: Spontaneous Delivery Outcome: Livebirth Infant Delivery Method: Spontaneous Vaginal Delivery-Single Delivery Mode: Vacuum Extraction Presentation: Left Occiput Anterior (TIMBO) Nuchal Cord: Present, Reduced Prep: Other Anesthesia Type: Epidural Amniotic Fluid Description: Bloody Episiotomy Type: None Laceration: None Placenta: Intact, Spontaneous Cord: 3 Vessels Estimated Blood Loss: 300 Resuscitation Needed: Yes : Suctioned Provider: Neisha Tam Score 1 min: 5 Score 5 min: 8 Delivery Comments (Free Text/Narrative):: Liveborn male 5/8 weight 3010. Labor complicated by recurrent variable decelerations, prolonged deceleration at start of pushing, requested consent for vacuum assistance prior to start of second stage of labor due to findings on tracing. Patient consented, palomo catheter had been in place, gynecoid pelvis was noted 3300 grams EFW on exam, pushed to +2 station after manual rotation of head from LOP to TIMBO positoin. Double nuchal cord reduced at delivery, bloody amniotic fluid was suctioned from pharnx at delivery of the head, no difficulty with delivery of shoulders and body. - General Info Date of Service: 03/05/20 - Patient Data Weight - Most Recent: 93.44 kg Lab Results Last 24 Hours: Laboratory Results - last 24 hr 03/05/20 03/05/20 03/05/20 Range/Units 05:44 06:56 06:56 WBC 13.04 H (4.0-11.0) K/uL RBC 4.04 L (4.30-5.90) M/uL Hgb 11.3 L (12.0-16.0) g/dL Hct 35.1 L (36.0-46.0) % MCV 86.9 (80.0-98.0) fL MCH 28.0 (27.0-32.0) pg MCHC 32.2 (31.0-37.0) g/dL RDW Std Deviation 44.9 (28.0-62.0) fl RDW Coeff of [place] 14 (11.0-15.0) % Plt Count 270 (150-400) K/uL MPV 12.60 H (7.40-12.00) fL Nucleated RBC % 0.0 /100WBC Nucleated RBCs # 0 K/uL SARS-CoV-2 RNA (RT-PCR) NEGATIVE (NEGATIVE) Blood Type A POSITIVE Antibody Screen NEGATIVE Med Orders - Current: Current Medications Discontinued Medications Bupivacaine HCl (Sensorcaine-Mpf 0.5%) Confirm Administered Dose 10 ml .ROUTE .IRI-MED ONE Stop: 03/05/20 07:43 Butorphanol Tartrate (Stadol) 1 mg IVPUSH Q1H PRN PRN Reason: Pain Carboprost Tromethamine (Hemabate Ds) 250 mcg IM ASDIRECTED PRN PRN Reason: Post Hemorrhage Fentanyl (Sublimaze) Confirm Administered Dose 100 mcg .ROUTE .IRI-17u.cn ONE Stop: 03/05/20 07:41 Lactated Ringer's (Ringers, Lactated) 1,000 mls @ 150 mls/hr IV ASDIRECTED [facility] Last Admin: 03/05/20 10:33 Dose: 150 mls/hr Documented by: Oxytocin/Sodium Chloride (Oxytocin 30 Unit/500 Ml-Ns) 30 unit in 500 mls @ 555 mls/hr IV TITRATE [facility] Last Admin: 03/05/20 09:50 Dose: 555 mls/hr Documented by: Tranexamic Acid 1,000 mg/ (Sodium Chloride) 110 mls @ 660 mls/hr IV ONETIME PRN PRN Reason: Bleeding Fentanyl/Bupivacaine HCl (Fentanyl/Bupivacaine/Ns 2 Mcg-0.125% 250 Ml) Confirm Administered Dose 250 mls @ as directed .ROUTE .[employer] ONE Stop: 03/05/20 07:42 Lidocaine HCl (Xylocaine 1%) 50 ml INJECT ONETIME PRN PRN Reason: Laceration repair Methylergonovine Maleate (Methergine) 0.2 mg IM ASDIRECTED PRN PRN Reason: Post Hemorrhage Misoprostol (Cytotec) 200 mcg PO ONETIME PRN PRN Reason: Post Hemorrhage Nalbuphine HCl (Nubain) 10 mg IVPUSH Q1H PRN PRN Reason: Pain (severe 7-10) Last Admin: 03/05/20 06:40 Dose: 10 mg Documented by: Ondansetron HCl (Zofran) 4 mg IVPUSH Q4H PRN PRN Reason: Nausea/Vomiting Sodium Chloride (Saline Flush) 10 ml FLUSH ASDIRECTED PRN PRN Reason: Keep Vein Open Sodium Chloride (Saline Flush) 2.5 ml FLUSH ASDIRECTED PRN PRN Reason: Keep Vein Open Sodium Chloride (Normal Saline) 10 ml IV ASDIRECTED PRN PRN Reason: IV Use Sterile Water (Sterile Water For Irrigation) 1,000 ml IRR ASDIRECTED PRN PRN Reason: delivery - Problem List & Annotations (1) Vaginal delivery SNOMED Code(s): 032726266 Code(s): O80 - ENCOUNTER FOR FULL-TERM UNCOMPLICATED DELIVERY Status: Acute Current Visit: No - Problem List Review Problem List Initiated/Reviewed/Updated: Yes - My Orders Last 24 Hours: My Active Orders 03/05/20 10:55 BLOOD GAS ARTERIAL UMBILICAL [BG] Urgent BLOOD GAS VENOUS UMBILICAL [BG] Urgent 03/05/20 Lunch Regular Diet [DIET] 03/05/20 12:01 Acetaminophen [Tylenol Extra Strength] 1,000 mg PO Q4H PRN Acetaminophen [Tylenol Extra Strength] 500 mg PO Q4H PRN Benzocaine/Menthol [Dermoplast Pain Relief 20%-0.5% Colora] 78 gm TOP ASDIRECTED PRN Docusate Sodium [Colace] 100 mg PO BID PRN Ibuprofen [Motrin] 400 mg PO Q4H PRN Ibuprofen [Motrin] 800 mg PO Q6H PRN Lanolin [Lansinoh HPA] See Dose Instructions TOP ASDIRECTED PRN Methylergonovine [Methergine] 0.2 mg IM ONETIME PRN bisacodyL [Dulcolax] 10 mg RECTAL ONETIME PRN witch Theresa [Tucks] 1 pad TOP ASDIRECTED PRN Resuscitation Status Routine 03/05/20 12:02 Patient Status [ADT] Routine May Shower [RC] ASDIRECTED Up ad Lucita [RC] ASDIRECTED Vital Signs [RC] PER UNIT ROUTINE Assess Lochia [WOMSER] Per Unit Routine Assess Uterine Involution [WOMSER] Per Unit Routine Perineal Care [OM.PC] Per Unit Routine Peripheral IV Discontinue [OM.PC] Routine 03/06/20 05:11 HEMOGLOBIN/HEMATOCRIT,HH [HEME] Timed
[2020-03-05] MEDS: Ibuprofen 800 MG Tab PO PRN ×2 (12:49→18:54)
[2020-03-05] MEDS: Acetaminophen 500 MG Tab PO PRN ×3 (12:50→22:02)
--- NOTE | 2020-03-05 15:59 | OR ---
SURGEON: Lorena Mills M.D. DATE OF PROCEDURE: 03/05/2020 PREOPERATIVE DIAGNOSES: A 39-3/7 weeks' intrauterine , active spontaneous labor, abnormal heart tones. POSTOPERATIVE DIAGNOSES: A 39-3/7 weeks' intrauterine , active spontaneous labor, abnormal heart tones. PROCEDURE: Vacuum-assisted vaginal delivery. PRIMARY SURGEON: Lorena Mills MD ANESTHESIA: Epidural. ESTIMATED BLOOD LOSS: Less than 300 mL. FINDINGS: Liveborn male, score of 5 and 8, weighing 3010 g. Placenta spontaneous, Angeles intact, with 3 vessels. Perineum intact. COMPLICATIONS: None known. DISPOSITION: Initially, baby was in nursery for evaluation. Currently, mother and baby are in LDR in good condition. BRIEF HISTORY: This is a 24-year-old female. She is G3, P 2-0-0-2. She presents in active spontaneous labor at 39-3/7 weeks' gestation. Her care has been complicated by depression, but otherwise no complications with her care. She presented initially 5 cm dilated. She did have a prolonged deceleration upon admission, which was resolved with hydration and position changes, but then continued to have deep variable decelerations intermittently related to contractions. She did receive an epidural for pain control. Following this, she was 8 cm dilated. Artificial rupture of membranes was performed, resulting in another deceleration, and she progressed to 9 cm with basically an anterior lip. She was noted to be right occiput posterior position. She was having repetitive variable decelerations. I obtained the patient's consent for manual rotation of the head followed by vacuum assistance if needed. She did concur. DESCRIPTION OF PROCEDURE: With the patient in dorsal lithotomy position, under adequate epidural analgesia, the perineum and vagina were prepped and draped in the usual fashion for vaginal surgery. With contractions, the head was rotated from an LOP to an TIMBO position. I did have her continue to push. I noted that the bladder had been drained with a catheter. The Joya was removed. She had a gynecoid pelvis. Estimated weight on my exam was 3300 g. She continued to push over three more contractions with resulting bradycardia down into the 70s. I confirmed consent to place the vacuum, which was placed. The Mityvac was placed in the midsagittal line 2 cm anterior to the posterior fontanelle, and with maternal expulsive efforts over a single contraction with no pop-offs, the head was delivered over the perineum with support. Note was made that the amniotic fluid was bloody and therefore the infant was bulb suctioned copiously on the perineum with subsequent delivery of the infant's shoulders and body without any difficulty. At , the baby did have good tone and grimace. The cord was clamped and cut x2 and given to the nurse in attendance at delivery. She and Dr. Tam proceeded with evaluation. The was a liveborn male with score of 5 and 8, weight is 3010 g. Due to the noted blood and requirement for positive pressure support immediately after delivery, there was a chest x-ray performed, but at this point, the baby has been returned to the mother in good condition. Cord blood was collected for cord ABGs as well as routine cord blood sampling. Pitocin was initiated after delivery of the to assist with delivery of the placenta, which was delivered spontaneously, Angeles intact, with 3 vessels. Upon inspection of the pelvis and perineum, there were no periurethral, vaginal sidewall, cervical, rectal, or perineal lacerations. EBL was less than 300 mL. There were no known complications. The placenta was sent to pathology for evaluation due to the abnormal heart tones. JOVANI NELSON /[id number]
--- NOTE | 2020-03-05 16:58 | PCM.POSTAN ---
POST ANESTHESIA ASSESSMENT - MENTAL STATUS Mental Status: Alert, Oriented - VITAL SIGNS Vital Signs: Last Vital Signs Temp 36.6 C 03/05/20 12:30 Pulse 86 03/05/20 12:30 Resp 18 03/05/20 12:30 BP 105/55 L 03/05/20 12:30 Pulse Ox 95 03/05/20 12:30 - RESPIRATORY Respiratory Status: Respiratory Rate WNL, Airway Patent, O2 Saturation Stable - CARDIOVASCULAR CV Status: Pulse Rate WNL, Blood Pressure Stable - GASTROINTESTINAL GI Status: No Symptoms - POST OP HYDRATION Hydration Status: Adequate & Stable
--- NOTE | 2020-03-05 18:53 | PCM48HPAN ---
Post Anesthesia Note - EVALUATION WITHIN 48HRS OF ANESTHETIC Vital Signs in Normal Range: Yes Patient Participated in Evaluation: Yes Respiratory Function Stable: Yes Airway Patent: Yes Cardiovascular Function Stable: Yes Hydration Status Stable: Yes Pain Control Satisfactory: Yes Nausea and Vomiting Control Satisfactory: Yes Mental Status Recovered: Yes Vital Signs: Last Vital Signs Temp 36.2 C 03/05/20 16:00 Pulse 75 03/05/20 16:00 Resp 18 03/05/20 16:00 BP 108/63 03/05/20 16:00 Pulse Ox 95 03/05/20 16:00
[2020-03-06] MEDS: Ibuprofen 800 MG Tab PO PRN ×2 (01:03→08:16)
[2020-03-06] MEDS: Acetaminophen 500 MG Tab PO PRN ×2 (02:55→08:17)
--- NOTE | 2020-03-06 07:23 | PCM.PNPP ---
- General Info Date of Service: 03/06/20 Functional Status: Reports: Pain Controlled, Tolerating Diet, Ambulating, Urinating - Review of Systems General: Reports: No Symptoms HEENT: Reports: No Symptoms Pulmonary: Reports: No Symptoms Cardiovascular: Reports: No Symptoms Gastrointestinal: Reports: No Symptoms Genitourinary: Reports: No Symptoms Musculoskeletal: Reports: No Symptoms Skin: Reports: No Symptoms Neurological: Reports: No Symptoms Psychiatric: Reports: No Symptoms - Patient Data Vital Signs - Most Recent: Last Vital Signs Temp 36.2 C 03/06/20 03:22 Pulse 86 03/06/20 03:22 Resp 17 03/06/20 03:22 BP 99/67 03/06/20 03:22 Pulse Ox 96 03/06/20 03:22 Weight - Most Recent: 93.44 kg Lab Results - Last 24 Hours: Laboratory Results - last 24 hr 03/05/20 03/05/20 03/06/20 Range/Units 06:56 09:47 06:22 Hgb 10.3 L (12.0-16.0) g/dL Hct 31.9 L (36.0-46.0) % Cord ABG pH 7.244 (7.18-7.38) Cord ABG Base Excess -7 (-10--2) Cord VBG pH 7.148 L (7.25-7.45) Cord VBG Base Excess -6 (-10--2) Blood Type A POSITIVE Antibody Screen NEGATIVE Med Orders - Current: Current Medications Acetaminophen (Tylenol Extra Strength) 500 mg PO Q4H PRN PRN Reason: Pain Acetaminophen (Tylenol Extra Strength) 1,000 mg PO Q4H PRN PRN Reason: Pain Last Admin: 03/06/20 02:55 Dose: 1,000 mg Documented by: Benzocaine/Menthol (Dermoplast Pain Relief 20%-0.5% [place]) 78 gm TOP ASDIRECTED PRN PRN Reason: Perineal Comfort Measure Bisacodyl (Dulcolax) 10 mg RECTAL ONETIME PRN PRN Reason: Constipation Docusate Sodium (Colace) 100 mg PO BID PRN PRN Reason: Constipation Emollient Ointment (Lansinoh Hpa) 0 gm TOP ASDIRECTED PRN PRN Reason: Sore Nipples Ibuprofen (Motrin) 400 mg PO Q4H PRN PRN Reason: Pain Ibuprofen (Motrin) 800 mg PO Q6H PRN PRN Reason: Pain Last Admin: 03/06/20 01:03 Dose: 800 mg Documented by: Methylergonovine Maleate (Methergine) 0.2 mg IM ONETIME PRN PRN Reason: Excessive Vaginal Bleeding Sha Flowers (Tucks) 1 pad TOP ASDIRECTED PRN PRN Reason: comfort care Discontinued Medications Bupivacaine HCl (Sensorcaine-Mpf 0.5%) Confirm Administered Dose 10 ml .ROUTE .STK-MED ONE Stop: 03/05/20 07:43 Butorphanol Tartrate (Stadol) 1 mg IVPUSH Q1H PRN PRN Reason: Pain Carboprost Tromethamine (Hemabate Ds) 250 mcg IM ASDIRECTED PRN PRN Reason: Post Hemorrhage Fentanyl (Sublimaze) Confirm Administered Dose 100 mcg .ROUTE .STK-MED ONE Stop: 03/05/20 07:41 Lactated Ringer's (Ringers, Lactated) 1,000 mls @ 150 mls/hr IV ASDIRECTED [facility] Last Admin: 03/05/20 10:33 Dose: 150 mls/hr Documented by: Oxytocin/Sodium Chloride (Oxytocin 30 Unit/500 Ml-Ns) 30 unit in 500 mls @ 555 mls/hr IV TITRATE [facility] Last Admin: 03/05/20 09:50 Dose: 555 mls/hr Documented by: Tranexamic Acid 1,000 mg/ (Sodium Chloride) 110 mls @ 660 mls/hr IV ONETIME PRN PRN Reason: Bleeding Fentanyl/Bupivacaine HCl (Fentanyl/Bupivacaine/Ns 2 Mcg-0.125% 250 Ml) Confirm Administered Dose 250 mls @ as directed .ROUTE .STK-MED ONE Stop: 03/05/20 07:42 Lidocaine HCl (Xylocaine 1%) 50 ml INJECT ONETIME PRN PRN Reason: Laceration repair Methylergonovine Maleate (Methergine) 0.2 mg IM ASDIRECTED PRN PRN Reason: Post Hemorrhage Misoprostol (Cytotec) 200 mcg PO ONETIME PRN PRN Reason: Post Hemorrhage Nalbuphine HCl (Nubain) 10 mg IVPUSH Q1H PRN PRN Reason: Pain (severe 7-10) Last Admin: 03/05/20 06:40 Dose: 10 mg Documented by: Ondansetron HCl (Zofran) 4 mg IVPUSH Q4H PRN PRN Reason: Nausea/Vomiting Sodium Chloride (Saline Flush) 10 ml FLUSH ASDIRECTED PRN PRN Reason: Keep Vein Open Sodium Chloride (Saline Flush) 2.5 ml FLUSH ASDIRECTED PRN PRN Reason: Keep Vein Open Sodium Chloride (Normal Saline) 10 ml IV ASDIRECTED PRN PRN Reason: IV Use Sterile Water (Sterile Water For Irrigation) 1,000 ml IRR ASDIRECTED PRN PRN Reason: delivery - Infant Interaction Disposition, : in Room with Family Infant Interaction: Holding Infant Feeding: Breastfed Infant; Nursed Well Support Person: - Recovery Exam Fundal Tone: Firm Fundal Level: 2 Fingerbreadths Below Umbilicus Fundal Placement: Midline Lochia Amount: Small Lochia Color: Rubra/Red Perineum Description: Intact, Minimal Bruising/Swelling, Edematous Episiotomy/Laceration: None Bladder Status: Voiding Urinary Elimination: Voided - Exam General: Alert, Oriented GI/Abdominal Exam: Soft, Non-Tender, No Organomegaly Extremities: Normal Inspection, Non-Tender, No Pedal Edema Skin: Warm, Dry, Intact Psy/Mental Status: Alert, Normal Affect, Normal Mood - Problem List & Annotations (1) Vaginal delivery SNOMED Code(s): 979205164 Code(s): O80 - ENCOUNTER FOR FULL-TERM UNCOMPLICATED DELIVERY Status: Acute Current Visit: No - Problem List Review Problem List Initiated/Reviewed/Updated: Yes - My Orders Last 24 Hours: My Active Orders 03/05/20 Lunch Regular Diet [DIET] 03/05/20 12:01 Acetaminophen [Tylenol Extra Strength] 1,000 mg PO Q4H PRN Acetaminophen [Tylenol Extra Strength] 500 mg PO Q4H PRN Benzocaine/Menthol [Dermoplast Pain Relief 20%-0.5% [place]] 78 gm TOP ASDIRECTED PRN Docusate Sodium [Colace] 100 mg PO BID PRN Ibuprofen [Motrin] 400 mg PO Q4H PRN Ibuprofen [Motrin] 800 mg PO Q6H PRN Lanolin [Lansinoh HPA] See Dose Instructions TOP ASDIRECTED PRN Methylergonovine [Methergine] 0.2 mg IM ONETIME PRN bisacodyL [Dulcolax] 10 mg RECTAL ONETIME PRN with[place] Theresa [Tucks] 1 pad TOP ASDIRECTED PRN Resuscitation Status Routine 03/05/20 12:02 Patient Status [ADT] Routine May Shower [RC] ASDIRECTED Up ad Lucita [RC] ASDIRECTED Vital Signs [RC] PER UNIT ROUTINE Assess Lochia [WOMSER] Per Unit Routine Assess Uterine Involution [WOMSER] Per Unit Routine Perineal Care [OM.PC] Per Unit Routine Peripheral IV Discontinue [OM.PC] Routine - Assessment Assessment:: PPD#1 after , stable minimal lochia, tolerating diet. is going well, would like to be discharged today. - Plan Plan:: instructions reviewed, dismiss to home when greater than 24 hours
== END 2020-03-06 13:15 | disposition home or self-care (01) | DRG 560 ==
LOC: MW.OBCHECK 05:07 → MW.OB 05:08 → MW.OBCHECK 06:16 → OBSVTOIN 09:47 → MW.OB 11:28
PROVIDERS: ADMIT Obstetrics & Gynecology; ATTEND Obstetrics & Gynecology
PROC: 10D07Z6 Extraction of Products of Conception, Vacuum, Via Natural or Artificial Opening (ICD-10-PCS; principal; 2020-03-05)
PROC: 10907ZC Drainage of Amniotic Fluid, Therapeutic from Products of Conception, Via Natural or Artificial Opening (ICD-10-PCS; 2020-03-05)
PROC: 3E0R3BZ Introduction of Anesthetic Agent into Spinal Canal, Percutaneous Approach (ICD-10-PCS; 2020-03-05)
DX: O76 Abnormality in fetal heart rate and rhythm complicating labor and delivery (principal); O69.81X0 Labor and delivery complicated by cord around neck, without compression, not applicable or unspecified; Z3A.39 39 weeks gestation of pregnancy; Z37.0 Single live birth; Z11.59 Encounter for screening for other viral diseases
CPT/HCPCS: 01967; 36415; 51702; 59025; 59409; 82803; 85014; 85018; 85027; 86592; 86593; 86850; 86900; 86901; 88307; A9270-GY; J2300; J2590; J7120; U0002

== ENCOUNTER 2020-07-21 14:53 | Emergency (ER) | payer BC ==
--- NOTE | 2020-07-21 15:41 | EDM.PDOC ---
ED HPI GENERAL MEDICAL PROBLEM - General Chief Complaint: Respiratory Problem Stated Complaint: DIFFICULTY BREATHING Time Seen by Provider: 07/21/20 15:19 Source of Information: Reports: Patient History Limitations: Reports: No Limitations - History of Present Illness INITIAL COMMENTS - FREE TEXT/NARRATIVE: Patient is a 25-year-old male who presented today for shortness of breath and cough. Patient states that she has felt this started today. Patient denies any fevers chills chest pain or other complaints. Patient's cough is dry in nature. Patient denies any sick contacts. - Related Data Allergies Allergy/AdvReac Type Severity Reaction Status Date / Time No Known Allergies Allergy Verified 07/21/20 15:06 Home Meds: Home Meds Venlafaxine [Effexor XR] 150 mg PO DAILY 07/21/20 [History] Past Medical History - Past Health History Medical/Surgical History: Denies Medical/Surgical History HEENT History: Reports: None Cardiovascular History: Reports: None Respiratory History: Reports: Asthma, Other (See Below) Other Respiratory History: "mild asthma" Gastrointestinal History: Reports: Other (See Below) Other Gastrointestinal History: biliary dyskinesia Genitourinary History: Reports: None 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 BACKGROUND History: Reports: Musculoskeletal History: Reports: None Neurological History: Reports: None Psychiatric History: Reports: Anxiety, Depression Endocrine/Metabolic History: Reports: None Hematologic History: Reports: None Immunologic History: Reports: None Oncologic (Cancer) History: Reports: None Dermatologic History: Reports: None - Infectious Disease History Infectious Disease History: Reports: None - Past Surgical History Head Surgeries/Procedures: Reports: None HEENT Surgical History: Reports: None Cardiovascular Surgical History: Reports: None Respiratory Surgical History: Reports: None GI Surgical History: Reports: None Female Surgical History: Reports: Breast Implant Endocrine Surgical History: Reports: None Neurological Surgical History: Reports: None Dermatological Surgical History: Reports: None Social & Family History - Family History Family Medical History: No Pertinent Family History - Tobacco Use Tobacco Use Status *Q: Never Tobacco User - Caffeine Use Caffeine Use: Reports: Coffee - Recreational Drug Use Recreational Drug Use: No ED ROS GENERAL - Review of Systems Review Of Systems: See Below Constitutional: Reports: No Symptoms HEENT: Reports: No Symptoms Respiratory: Reports: Shortness of Breath, Cough Cardiovascular: Reports: No Symptoms Endocrine: Reports: No Symptoms GI/Abdominal: Reports: No Symptoms : Reports: No Symptoms Musculoskeletal: Reports: No Symptoms Skin: Reports: No Symptoms Neurological: Reports: No Symptoms Psychiatric: Reports: No Symptoms Hematologic/Lymphatic: Reports: No Symptoms Immunologic: Reports: No Symptoms ED EXAM, GENERAL - Physical Exam Exam: See Below Exam Limited By: No Limitations General Appearance: Alert, No Apparent Distress Eye Exam: Bilateral Eye: EOMI, PERRL Respiratory/Chest: No Respiratory Distress Cardiovascular: Normal Peripheral Pulses, Regular Rate, Rhythm GI/Abdominal: Normal Bowel Sounds, Soft, Non-Tender Neurological: Alert, Oriented, CN II-XII Intact, Normal Cognition, Normal Gait Course - Vital Signs Last Recorded V/S: Last Vital Signs Temp 97 F 07/21/20 15:07 Pulse 85 07/21/20 15:07 Resp 18 07/21/20 15:07 BP 112/75 07/21/20 15:07 Pulse Ox 98 07/21/20 15:07 - Orders/Labs/Meds Orders: Active Orders 24 hr Category Date Time Status CORONAVIRUS COVID-19 PCR PHL Stat Lab 07/21/20 15:39 Received Labs: Laboratory Tests 07/21/20 07/21/20 07/21/20 Range/Units 15:37 15:39 15:45 WBC 8.07 (4.0-11.0) K/uL RBC 5.09 (4.30-5.90) M/uL Hgb 14.3 (12.0-16.0) g/dL Hct 43.6 (36.0-46.0) % MCV 85.7 (80.0-98.0) fL MCH 28.1 (27.0-32.0) pg MCHC 32.8 (31.0-37.0) g/dL RDW Std Deviation 41.8 (28.0-62.0) fl RDW Coeff of [place] 13 (11.0-15.0) % Plt Count 402 H (150-400) K/uL MPV 11.90 (7.40-12.00) fL Neut % (Auto) 56.9 (48.0-80.0) % Lymph % (Auto) 37.1 (16.0-40.0) % Mcleod % (Auto) 5.9 (0.0-15.0) % Eos % (Auto) 0.0 (0.0-7.0) % Baso % (Auto) 0.1 (0.0-1.5) % Neut # (Auto) 4.6 (1.4-5.7) K/uL Lymph # (Auto) 3.0 H (0.6-2.4) K/uL Mcleod # (Auto) 0.5 (0.0-0.8) K/uL Eos # (Auto) 0.0 (0.0-0.7) K/uL Baso # (Auto) 0.0 (0.0-0.1) K/uL Nucleated RBC % 0.0 /100WBC Nucleated RBCs # 0 K/uL Sodium (136-145) mmol/L Potassium (3.5-5.1) mmol/L Chloride (98-107) mmol/L Carbon Dioxide (21.0-32.0) mmol/L BUN (7.0-18.0) mg/dL Creatinine (0.6-1.0) mg/dL Est Cr Clr Drug Dosing mL/min Estimated GFR (MDRD) ml/min Glucose (74-106) mg/dL Calcium (8.5-10.1) mg/dL Urine HCG, Qual NEGATIVE (NEGATIVE) SARS CoV-2 RNA Rapid MONCHO NEGATIVE (NEGATIVE) 07/21/20 Range/Units 15:45 WBC (4.0-11.0) K/uL RBC (4.30-5.90) M/uL Hgb (12.0-16.0) g/dL Hct (36.0-46.0) % MCV (80.0-98.0) fL MCH (27.0-32.0) pg MCHC (31.0-37.0) g/dL RDW Std Deviation (28.0-62.0) fl RDW Coeff of [place] (11.0-15.0) % Plt Count (150-400) K/uL MPV (7.40-12.00) fL Neut % (Auto) (48.0-80.0) % Lymph % (Auto) (16.0-40.0) % Mcleod % (Auto) (0.0-15.0) % Eos % (Auto) (0.0-7.0) % Baso % (Auto) (0.0-1.5) % Neut # (Auto) (1.4-5.7) K/uL Lymph # (Auto) (0.6-2.4) K/uL Mcleod # (Auto) (0.0-0.8) K/uL Eos # (Auto) (0.0-0.7) K/uL Baso # (Auto) (0.0-0.1) K/uL Nucleated RBC % /100WBC Nucleated RBCs # K/uL Sodium 140 (136-145) mmol/L Potassium 3.9 (3.5-5.1) mmol/L Chloride 105 (98-107) mmol/L Carbon Dioxide 25.9 (21.0-32.0) mmol/L BUN 9 (7.0-18.0) mg/dL Creatinine 0.9 (0.6-1.0) mg/dL Est Cr Clr Drug Dosing 77.67 mL/min Estimated GFR (MDRD) > 60.0 ml/min Glucose 98 (74-106) mg/dL Calcium 9.3 (8.5-10.1) mg/dL Urine HCG, Qual (NEGATIVE) SARS CoV-2 RNA Rapid MONCHO (NEGATIVE) - Re-Assessments/Exams Free Text/Narrative Re-Assessment/Exam: 07/21/20 16:44 Patient was scheduled to be discharged. Patient oxygen level remained greater than 99% on room air. Patient lungs clear as well as x-ray. Patient spoke to her who instructed her to ask for an inhaler. We asked patient what she feels she needs inhaler she came said and said we did not do anything for today and and she would go to the hospital that with F word help her. Patient then walked out upset. Departure - Departure Time of Disposition: 16:43 Disposition: Home, Self-Care 01 Condition: Good Clinical Impression: Viral illness, Dyspnea - Discharge Information *PRESCRIPTION DRUG MONITORING PROGRAM REVIEWED*: Not Applicable *COPY OF PRESCRIPTION DRUG MONITORING REPORT IN PATIENT SAVAGE: Not Applicable Referrals: PCP,None [Primary Care Provider] - Forms: ED Department Discharge Additional Instructions: Patient left pressure before receiving paperwork Sepsis Event Note (ED) - Evaluation Sepsis Screening Result: No Definite Risk - Focused Exam Vital Signs: Vital Signs Temp Pulse Resp BP Pulse Ox 07/21/20 15:07 97 F 85 18 112/75 98 - My Orders Last 24 Hours: My Active Orders 07/21/20 15:39 CORONAVIRUS COVID-19 PCR PHL Stat - Assessment/Plan Last 24 Hours: My Active Orders 07/21/20 15:39 CORONAVIRUS COVID-19 PCR PHL Stat Plan: Patient is a 25-year-old female who presents today for shortness of breath and cough. Patient is satting 98% on room air and lungs are clear bilaterally. Will obtain chest x-ray and reassess.
[2020-07-21 16:07] LABS: BLOOD UREA NITROGEN,BUN 9 mg/dL (7.0-18.0); CARBON DIOXIDE,CO2 25.9 mmol/L (21.0-32.0); CHLORIDE,CL 105 mmol/L (98-107); GLUCOSE RANDOM 98 mg/dL (74-106); POTASSIUM,K 3.9 mmol/L (3.5-5.1); SODIUM,NA 140 mmol/L (136-145)
--- NOTE | 2020-07-21 16:12 | CR ---
Indication: Dyspnea. Technique: AP portable view of the chest. Comparison: None Findings: The heart is normal in size. The lungs are clear. No infiltrate, pleural effusion, or pneumothorax is identified. Impression: No acute cardiopulmonary process. Dictated by Marimar Galaviz MD @ Jul 21 2020 4:11PM Signed by Dr. Marimar Galaviz @ Jul 21 2020 4:11PM
== END 2020-07-21 16:40 | disposition home or self-care (01) ==
LOC: MW.ED 14:53
DX: R06.02 Shortness of breath (principal); B34.9 Viral infection, unspecified; J45.909 Unspecified asthma, uncomplicated; F41.9 Anxiety disorder, unspecified; F32.9 Major depressive disorder, single episode, unspecified; Z79.899 Other long term (current) drug therapy; Z20.828 Contact with and (suspected) exposure to other viral communicable diseases
CPT/HCPCS: 36415; 71045; 71045-26; 80048; 81025; 85025; 99282; 99285-25; U0002

== ENCOUNTER 2021-01-11 14:53 | Emergency (ER) | payer BC ==
[2021-01-11] MEDS ORDERED: Sodium Chloride 0.9% 2.5 ML Syringe FLUSH PRN (15:06)
[2021-01-11] MEDS ORDERED: Sodium Chloride 0.9% 1,000 ML IV ONE ×2 (15:06→17:17)
[2021-01-11] MEDS ORDERED: Sodium Chloride 0.9% 10 ML Syringe FLUSH PRN (15:06)
--- NOTE | 2021-01-11 15:07 | EDM.PDOC ---
ED HPI GENERAL MEDICAL PROBLEM - General Chief Complaint: General Stated Complaint: VOMITTING WEAK Time Seen by Provider: 01/11/21 15:05 Source of Information: Reports: Patient History Limitations: Reports: No Limitations - History of Present Illness INITIAL COMMENTS - FREE TEXT/NARRATIVE: HISTORY AND PHYSICAL: History of present illness: Patient is a 24-year-old female who presents to the emergency room with complaints of nausea, vomiting and diarrhea over the past 24 hours. She reports the whole family has been hit by "the flu bug" and she started having symptoms within the last day. Diarrhea has resolved but she continues to have nausea and vomiting. She also has body aches and subjective fever. Remaining family members have improved. She denies any headache, change in vision, syncope or near syncope. Denies any chest pain, back pain, shortness of breath or cough. Denies any abdominal pain constipation or dysuria. Has not noted any blood in urine or stool. No concern for . Review of systems: As per history of present illness and below otherwise all systems reviewed and negative. Past medical history: As per history of present illness and as reviewed below otherwise noncontributory. Surgical history: As per history of present illness and as reviewed below otherwise noncontributory. Social history: See social history for further information Family history: As per history of present illness and as reviewed below otherwise noncontributory. Physical exam: General: Well developed and well nourished 25-year-old female. Alert and orientated x 3. Nontoxic in appearance and in no acute distress. Vital signs are stable and have been reviewed by me. Nursing notes were reviewed. HEENT: Atraumatic, normocephalic, pupils equal and reactive bilaterally, negative for conjunctival pallor or scleral icterus, mucous membranes moist, TMs normal bilaterally, throat clear, neck supple, nontender, trachea midline. No drooling or trismus noted. No meningeal signs. No hot potato voice noted. Lungs: Clear to auscultation bilaterally. No wheezes, rales, or rhonchi. Chest nontender. Normal work of breathing, no accessory muscles used. Heart: S1S2, regular rate and rhythm without overt murmur, gallops, or rubs. No JVD. No peripheral edema Abdomen: Soft, nondistended, mild tenderness throughout. No rebound tenderness. Normoactive bowel sounds. Negative for masses or costovertebral tenderness. Skin: Intact, warm, dry. No lesions or rashes noted. Hematologic: No petechiae or purpra. Mucosa appropriate color and normal nail bed color and refill. Extremities: Atraumatic, moves all extremities per self without difficulty or deficits, negative for cords or calf pain. Neurovascular unremarkable. Neuro: Awake, alert, oriented. Cranial nerves II through XII unremarkable. Cerebellum unremarkable. Motor and sensory unremarkable throughout. Exam nonfocal. Psychiatric: Mood and affect are appropriate. Normal thought process. Answering questions appropriately. Notes: *This patient was seen and evaluated during the 2019 SARS-CoV-2 novel coronavirus pandemic period. Community viral transmission is ongoing at time of this encounter and the emergency department is operating under pandemic response procedures. Patient states she has a significant history of N/V and has not had any luck with Zofran in the past. States she would rather have Phenergan IM. She is agreeable to basic labs at this time. Leukocytosis, with generalized abdominal pain, will do a CT abd/pelvis to ensure no significant findings. Patient does feel improved at this time, although states she feels like her nausea and abdominal pain "is creeping back up". CT shows borderline hepatomegaly. Questionable thickening of the wall of the stomach, pathologic versus lack of complete distention. Gastritis cannot be completely excluded. VSS. I have talked with the patient about today's findings, in addition to providing specific details for plan of care. Reassessment at the time of disposition demonstrates that the patient is in no acute distress. The patient is stable for discharge, counseling was provided and we discussed in great detail signs and symptoms that would prompt them to return to the Emergency Department. Medication, follow up and supportive care measures were reviewed and discussed. Voices understanding and is agreeable to plan of care. Denies any further questions or concerns at this time. Diagnostics: CBC, CMP, UA, urine , Covid/influenza Therapeutics: IV fluid, Phenergan IM, toradol Prescription: Impression: Gastroenteritis Plan: 1. You were evaluated today on an emergent basis. Your lab work and CT scan show gastroenteritis (stomach bug/flu). Small frequent sips of fluids to prevent dehydration. 2. You can alternate Tylenol and ibuprofen as needed for pain and fever management. 3. We encourage you to follow up with your primary care provider and/or recommended specialist in the next few days for re-evaluation and further care/management. 4. If your symptoms should worsen, new symptoms develop or any of the signs and symptoms we discussed should arise please return to the emergency room or call 911 (if needed). Definitive disposition and diagnosis as appropriate pending reevaluation and review of above. - Related Data Allergies Allergy/AdvReac Type Severity Reaction Status Date / Time No Known Allergies Allergy Verified 01/11/21 15:16 Home Meds: Home Meds Albuterol [Proventil HFA] 2 puff INH Q6H PRN 30 Days #1 inhaler 07/21/20 [Rx] Venlafaxine [Effexor XR] 150 mg PO DAILY 07/21/20 [History] lamoTRIgine [Lamotrigine ER] 50 mg PO DAILY 01/11/21 [History] Past Medical History - Past Health History Medical/Surgical History: Denies Medical/Surgical History HEENT History: Reports: None Cardiovascular History: Reports: None Respiratory History: Reports: Asthma, Other (See Below) Other Respiratory History: "mild asthma" Gastrointestinal History: Reports: Other (See Below) Other Gastrointestinal History: biliary dyskinesia Genitourinary History: Reports: None 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: Musculoskeletal History: Reports: None Neurological History: Reports: None Psychiatric History: Reports: Anxiety, Depression Endocrine/Metabolic History: Reports: None Hematologic History: Reports: None Immunologic History: Reports: None Oncologic (Cancer) History: Reports: None Dermatologic History: Reports: None - Infectious Disease History Infectious Disease History: Reports: None - Past Surgical History Head Surgeries/Procedures: Reports: None HEENT Surgical History: Reports: None Cardiovascular Surgical History: Reports: None Respiratory Surgical History: Reports: None GI Surgical History: Reports: None Female Surgical History: Reports: Breast Implant Endocrine Surgical History: Reports: None Neurological Surgical History: Reports: None Dermatological Surgical History: Reports: None Social & Family History - Family History Family Medical History: No Pertinent Family History - Caffeine Use Caffeine Use: Reports: Coffee ED ROS GENERAL - Review of Systems Review Of Systems: Comprehensive ROS is negative, except as noted in HPI. ED EXAM, GENERAL - Physical Exam Exam: See Below (See dictation) Course - Vital Signs Last Recorded V/S: Last Vital Signs Temp 96.7 F L 01/11/21 15:14 Pulse 82 01/11/21 17:54 Resp 16 05/14/21 17:54 BP 105/62 01/11/21 17:54 Pulse Ox 98 01/11/21 17:54 - Orders/Labs/Meds Orders: Active Orders 24 hr Category Date Time Status Sodium Chloride 0.9% [Normal Saline] 1,000 ml Med 01/11/21 17:17 Active IV STAT Sodium Chloride 0.9% [Saline Flush] Med 01/11/21 15:06 Active 10 ml FLUSH ASDIRECTED PRN Sodium Chloride 0.9% [Saline Flush] Med 01/11/21 15:06 Active 2.5 ml FLUSH ASDIRECTED PRN Saline Lock Insert [OM.PC] Stat Oth 01/11/21 15:06 Ordered Medication Orders Sodium Chloride (Normal Saline) 1,000 mls @ 125 mls/hr IV STAT ONE Stop: 01/12/21 01:16 Last Admin: 01/11/21 17:48 Dose: 125 mls/hr Documented by: MURDNIC Sodium Chloride (Sodium Chloride 0.9% 10 Ml Syringe) 10 ml FLUSH ASDIRECTED PRN PRN Reason: Keep Vein Open Last Admin: 01/11/21 15:22 Dose: 10 ml Documented by: MURDNIC Sodium Chloride (Sodium Chloride 0.9% 2.5 Ml Syringe) 2.5 ml FLUSH ASDIRECTED PRN PRN Reason: Keep Vein Open Last Admin: 01/11/21 15:22 Dose: 2.5 ml Documented by: CHARLA Labs: Laboratory Tests 01/11/21 01/11/21 01/11/21 Range/Units 15:22 15:22 15:50 WBC 13.35 H (4.0-11.0) K/uL RBC 5.40 (4.30-5.90) M/uL Hgb 15.1 (12.0-16.0) g/dL Hct 45.7 (36.0-46.0) % MCV 84.6 (80.0-98.0) fL MCH 28.0 (27.0-32.0) pg MCHC 33.0 (31.0-37.0) g/dL RDW Std Deviation 42.0 (28.0-62.0) fl RDW Coeff of [place] 14 (11.0-15.0) % Plt Count 407 H (150-400) K/uL MPV 11.40 (7.40-12.00) fL Neut % (Auto) 94.0 H (48.0-80.0) % Lymph % (Auto) 4.0 L (16.0-40.0) % Orange % (Auto) 1.9 (0.0-15.0) % Eos % (Auto) 0.0 (0.0-7.0) % Baso % (Auto) 0.1 (0.0-1.5) % Neut # (Auto) 12.5 H (1.4-5.7) K/uL Lymph # (Auto) 0.5 L (0.6-2.4) K/uL Orange # (Auto) 0.3 (0.0-0.8) K/uL Eos # (Auto) 0.0 (0.0-0.7) K/uL Baso # (Auto) 0.0 (0.0-0.1) K/uL Nucleated RBC % 0.0 /100WBC Nucleated RBCs # 0 K/uL Sodium 141 (136-145) mmol/L Potassium 4.0 (3.5-5.1) mmol/L Chloride 104 (98-107) mmol/L Carbon Dioxide 23.7 (21.0-32.0) mmol/L BUN 13 (7.0-18.0) mg/dL Creatinine 0.8 (0.6-1.0) mg/dL Est Cr Clr Drug Dosing 91.21 mL/min Estimated GFR (MDRD) > 60.0 ml/min Glucose 113 H (74-106) mg/dL Calcium 8.7 (8.5-10.1) mg/dL Total Bilirubin 0.5 (0.2-1.0) mg/dL AST 17 (15-37) IU/L ALT 29 (14-63) IU/L Alkaline Phosphatase 114 (46-116) U/L Total Protein 8.0 (6.4-8.2) g/dL Albumin 4.0 (3.4-5.0) g/dL Globulin 4.0 (2.6-4.0) g/dL Albumin/Globulin Ratio 1.0 (0.9-1.6) HCG, Qual (NEG) Urine Color Urine Appearance Urine pH (5.0-8.0) Ur Specific [place] (1.001-1.035) Urine Protein (NEGATIVE) mg/dL Urine Glucose (UA) (NEGATIVE) mg/dL Urine Ketones (NEGATIVE) mg/dL Urine Occult Blood (NEGATIVE) Urine Nitrite (NEGATIVE) Urine Bilirubin (NEGATIVE) Urine Urobilinogen (<2.0) EU/dL Ur Leukocyte Esterase (NEGATIVE) Influenza Type A RNA NEGATIVE (NEGATIVE) Influenza Type B RNA NEGATIVE (NEGATIVE) SARS-CoV-2 RNA (MONCHO) NEGATIVE (NEGATIVE) 01/11/21 01/11/21 Range/Units 15:55 17:39 WBC (4.0-11.0) K/uL RBC (4.30-5.90) M/uL Hgb (12.0-16.0) g/dL Hct (36.0-46.0) % MCV (80.0-98.0) fL MCH (27.0-32.0) pg MCHC (31.0-37.0) g/dL RDW Std Deviation (28.0-62.0) fl RDW Coeff of [place] (11.0-15.0) % Plt Count (150-400) K/uL MPV (7.40-12.00) fL Neut % (Auto) (48.0-80.0) % Lymph % (Auto) (16.0-40.0) % Orange % (Auto) (0.0-15.0) % Eos % (Auto) (0.0-7.0) % Baso % (Auto) (0.0-1.5) % Neut # (Auto) (1.4-5.7) K/uL Lymph # (Auto) (0.6-2.4) K/uL Orange # (Auto) (0.0-0.8) K/uL Eos # (Auto) (0.0-0.7) K/uL Baso # (Auto) (0.0-0.1) K/uL Nucleated RBC % /100WBC Nucleated RBCs # K/uL Sodium (136-145) mmol/L Potassium (3.5-5.1) mmol/L Chloride (98-107) mmol/L Carbon Dioxide (21.0-32.0) mmol/L BUN (7.0-18.0) mg/dL Creatinine (0.6-1.0) mg/dL Est Cr Clr Drug Dosing mL/min Estimated GFR (MDRD) ml/min Glucose (74-106) mg/dL Calcium (8.5-10.1) mg/dL Total Bilirubin (0.2-1.0) mg/dL AST (15-37) IU/L ALT (14-63) IU/L Alkaline Phosphatase (46-116) U/L Total Protein (6.4-8.2) g/dL Albumin (3.4-5.0) g/dL Globulin (2.6-4.0) g/dL Albumin/Globulin Ratio (0.9-1.6) HCG, Qual NEGATIVE (NEG) Urine Color YELLOW Urine Appearance CLEAR Urine pH 6.5 (5.0-8.0) Ur Specific [place] 1.010 (1.001-1.035) Urine Protein NEGATIVE (NEGATIVE) mg/dL Urine Glucose (UA) NEGATIVE (NEGATIVE) mg/dL Urine Ketones 15 H (NEGATIVE) mg/dL Urine Occult Blood NEGATIVE (NEGATIVE) Urine Nitrite NEGATIVE (NEGATIVE) Urine Bilirubin NEGATIVE (NEGATIVE) Urine Urobilinogen 0.2 (<2.0) EU/dL Ur Leukocyte Esterase NEGATIVE (NEGATIVE) Influenza Type A RNA (NEGATIVE) Influenza Type B RNA (NEGATIVE) SARS-CoV-2 RNA ([place]CHO) (NEGATIVE) Meds: Medications Generic Name Dose Route Start Last Admin Trade Name Freq PRN Reason Stop Dose Admin Sodium Chloride 1,000 mls @ 125 mls/hr 01/11/21 17:17 01/11/21 17:48 Normal Saline IV 01/12/21 01:16 125 mls/hr STAT ONE Administration Sodium Chloride 10 ml 01/11/21 15:06 01/11/21 15:22 Sodium Chloride 0.9% 10 Ml Syringe FLUSH 10 ml ASDIRECTED PRN Administration Keep Vein Open Sodium Chloride 2.5 ml 01/11/21 15:06 01/11/21 15:22 Sodium Chloride 0.9% 2.5 Ml Syringe FLUSH 2.5 ml ASDIRECTED PRN Administration Keep Vein Open Discontinued Medications Generic Name Dose Route Start Last Admin Trade Name Freq PRN Reason Stop Dose Admin Sodium Chloride 1,000 mls @ 999 mls/hr 01/11/21 15:06 01/11/21 15:22 Normal Saline IV 01/11/21 16:06 999 mls/hr STAT ONE Administration Iopamidol 100 ml 01/11/21 17:36 01/11/21 17:37 Iopamidol 755 Mg/Ml 500 Ml Multipack Bottle IVPUSH 01/11/21 17:37 100 ml ONETIME ONE Administration Ketorolac Tromethamine 30 mg 01/11/21 15:18 01/11/21 15:32 Ketorolac 30 Mg/Ml Sdv IVPUSH 01/11/21 15:19 30 mg ONETIME ONE Administration Promethazine HCl 25 mg 01/11/21 15:18 01/11/21 15:32 Promethazine 25 Mg/Ml Sdv IM 01/11/21 15:19 25 mg ONETIME ONE Administration Departure - Departure Time of Disposition: 18:25 Disposition: Home, Self-Care 01 Clinical Impression: Gastroenteritis - Discharge Information Instructions: Viral Gastroenteritis, Adult, [id number] Referrals: Ulises Valdez MD [Primary Care Provider] - Forms: ED Department Discharge Additional Instructions: The following information is given to patients seen in the emergency department who are being discharged to home. This information is to outline your options for follow-up care. We provide all patients seen in our emergency department with a follow-up referral. The need for follow-up, as well as the timing and circumstances, are variable depending upon the specifics of your emergency department visit. If you don't have a primary care physician on staff, we will provide you with a referral. We always advise you to contact your personal physician following an emergency department visit to inform them of the circumstance of the visit and for follow-up with them and/or the need for any referrals to a consulting sp ecialist. The emergency department will also refer you to a specialist when appropriate. This referral assures that you have the opportunity for follow-up care with a specialist. All of these measure are taken in an effort to provide you with optimal care, which includes your follow-up. Under all circumstances we always encourage you to contact your private physician who remains a resource for coordinating your care. When calling for follow-up care, please make the office aware that this follow-up is from your recent emergency room visit. If for any reason you are refused follow-up, please contact the [facility] Emergency Department at and asked to speak to the emergency department charge nurse. [facility] [address] [place] [address] [facility] [address] [place] [address] Thank you for choosing the [facility] emergency department in [place] for your medical needs today. It was a pleasure caring for you. Today you were seen in the emergency department for nausea and Vomiting. 1. You were evaluated today on an emergent basis. Your lab work and CT scan show gastroenteritis (viral stomach bug/flu). Small frequent sips of fluids to prevent dehydration. 2. You can alternate Tylenol and ibuprofen as needed for pain and fever management. 3. We encourage you to follow up with your primary care provider and/or briseida mmended specialist in the next few days for re-evaluation and further care/management. 4. If your symptoms should worsen, new symptoms develop or any of the signs and symptoms we discussed should arise please return to the emergency room or call 911 (if needed). Sepsis Event Note (ED) - Focused Exam Vital Signs: Vital Signs Temp Pulse Resp BP Pulse Ox 01/11/21 17:54 82 16 105/62 98 01/11/21 15:14 96.7 F L 117 H 16 117/70 98 - My Orders Last 24 Hours: My Active Orders 01/11/21 15:06 Sodium Chloride 0.9% [Saline Flush] 10 ml FLUSH ASDIRECTED PRN Sodium Chloride 0.9% [Saline Flush] 2.5 ml FLUSH ASDIRECTED PRN Saline Lock Insert [OM.PC] Stat 01/11/21 17:17 Sodium Chloride 0.9% [Normal Saline] 1,000 ml IV STAT - Assessment/Plan Last 24 Hours: My Active Orders 01/11/21 15:06 Sodium Chloride 0.9% [Saline Flush] 10 ml FLUSH ASDIRECTED PRN Sodium Chloride 0.9% [Saline Flush] 2.5 ml FLUSH ASDIRECTED PRN Saline Lock Insert [OM.PC] Stat 01/11/21 17:17 Sodium Chloride 0.9% [Normal Saline] 1,000 ml IV STAT
[2021-01-11] MEDS ORDERED: Promethazine 25 MG/ML SDV IM ONE (15:18)
[2021-01-11] MEDS ORDERED: Ketorolac 30 MG/ML SDV IVPUSH ONE (15:18)
[2021-01-11 15:53] LABS: BLOOD UREA NITROGEN,BUN 13 mg/dL (7.0-18.0); CARBON DIOXIDE,CO2 23.7 mmol/L (21.0-32.0); CHLORIDE,CL 104 mmol/L (98-107); GLUCOSE RANDOM 113 mg/dL (74-106); SODIUM,NA 141 mmol/L (136-145)
[2021-01-11 16:39] LABS: CORONAVIRUS COVID-19 NAA NEGATIVE (NEGATIVE); INFLUENZA A NAA NEGATIVE (NEGATIVE); INFLUENZA B NAA NEGATIVE (NEGATIVE)
[2021-01-11] MEDS ORDERED: Iopamidol 755 MG/ML 500 ML Multipack Bottle IVPUSH ONE (17:36)
--- NOTE | 2021-01-11 18:17 | CT ---
Indication: Nausea. Vomiting. General abdominal pain. Technique: Multiple contiguous axial images were obtained from the lung bases is symphysis pubis after the intravenous administration 100 cc Isovue 370. Please note that all CT scans at this facility use dose modulation, iterative reconstruction, and/or weight-based dosing when appropriate to reduce radiation dose to as low as reasonably achievable. Comparison: None Findings: Bilateral breast implants are identified. The lung bases are clear. No infiltrate, pleural effusion, or pneumothorax is identified. The heart is normal in size. No pericardial effusion is identified. The liver measures 18.9 centimeters in size. No intrahepatic biliary ductal dilatation or intrahepatic masses are identified. The spleen, pancreas, adrenals, and kidneys are normal. No hydronephrosis is identified. Postsurgical changes of cholecystectomy are identified. In the pelvis, the urinary bladder is normal. The uterus is normal. Both ovaries appear to be grossly normal. The small and large bowel are normal in caliber. The appendix is normal in size. No inflammatory changes are identified in the right lower quadrant. The aorta is normal in caliber. No free air or free fluid is identified within the abdomen or pelvis. Questionable thickening of the wall of the stomach is identified. However this could all be related to lack of distention. A small fat containing umbilical hernia is identified. No lytic or blastic lesions of the spine are identified. Impression: Borderline hepatomegaly. Questionable thickening of the wall of the stomach, pathologic versus lack of complete distention. Gastritis cannot be completely excluded Please note that all CT scans at this facility use dose modulation, iterative reconstruction, and/or weight-based dosing when appropriate to reduce radiation dose to as low as reasonably achievable. Dictated by Marimar Galaviz MD @ 01/11/2021 6:16:[address] Marimar Galaviz @ Jan 11 2021 6:16PM
== END 2021-01-11 18:34 | disposition home or self-care (01) ==
LOC: MW.ED 14:53
DX: K52.9 Noninfective gastroenteritis and colitis, unspecified (principal); Z20.822 Contact with and (suspected) exposure to COVID-19
CPT/HCPCS: 0240U; 74177; 80053; 81003; 84703; 85025; 96372; 96374; 99284; J1885; J2550; J7030; Q9967; 99283

== ENCOUNTER 2021-07-31 08:15 | Emergency (ER) | payer BC ==
--- NOTE | 2021-07-31 08:38 | EDM.PDOC ---
ED HPI GENERAL MEDICAL PROBLEM - General Chief Complaint: General Stated Complaint: BODY ACHES Time Seen by Provider: 07/31/21 08:15 Source of Information: Reports: Patient History Limitations: Reports: No Limitations - History of Present Illness INITIAL COMMENTS - FREE TEXT/NARRATIVE: Patient is a 26-year-old female who presents today for diffuse body aches. Patient states that she feels her body does hurt she tried Tylenol without much relief. Body feels achy. Achy feelings not made better or worse with any events. She denies any fevers chills but did say she felt slightly nauseous earlier but is able to tolerate p.o. patient otherwise no other complaints. She did mention she had similar symptoms a year ago. Generalized Pain Score (Numeric/FACES): 8 - Related Data Allergies Allergy/AdvReac Type Severity Reaction Status Date / Time No Known Allergies Allergy Verified 07/31/21 08:18 Home Meds: Home Meds Venlafaxine [Effexor XR] 150 mg PO DAILY 07/21/20 [History] Gabapentin [Neurontin] 100 mg PO DAILY 07/31/21 [History] Levothyroxine 25 mcg PO ACBREAKFAST 07/31/21 [History] Past Medical History - Past Health History Medical/Surgical History: Denies Medical/Surgical History HEENT History: Reports: None Cardiovascular History: Reports: None Respiratory History: Reports: Asthma, Other (See Below) Other Respiratory History: "mild asthma" Gastrointestinal History: Reports: Other (See Below) Other Gastrointestinal History: biliary dyskinesia Genitourinary History: Reports: None CAPONIZER History: Reports: Musculoskeletal History: Reports: None Neurological History: Reports: None Psychiatric History: Reports: Anxiety, Depression Endocrine/Metabolic History: Reports: Hypothyroidism Hematologic History: Reports: None Immunologic History: Reports: None Oncologic (Cancer) History: Reports: None Dermatologic History: Reports: None - Infectious Disease History Infectious Disease History: Reports: None - Past Surgical History Head Surgeries/Procedures: Reports: None HEENT Surgical History: Reports: None Cardiovascular Surgical History: Reports: None Respiratory Surgical History: Reports: None GI Surgical History: Reports: Cholecystectomy Female Surgical History: Reports: Breast Implant Other Female Surgeries/Procedures: "Breast augmentation" Endocrine Surgical History: Reports: None Neurological Surgical History: Reports: None Dermatological Surgical History: Reports: None Social & Family History - Family History Family Medical History: No Pertinent Family History - Tobacco Use Tobacco Use Status *Q: Former Tobacco User Used Tobacco, but Quit: Yes Month/Year Tobacco Last Used: 08/2014 - Caffeine Use Caffeine Use: Reports: Coffee - Recreational Drug Use Recreational Drug Use: No ED ROS GENERAL - Review of Systems Review Of Systems: See Below Constitutional: Reports: Weakness HEENT: Reports: No Symptoms Respiratory: Reports: No Symptoms Cardiovascular: Reports: No Symptoms Endocrine: Reports: No Symptoms GI/Abdominal: Reports: No Symptoms : Reports: No Symptoms Musculoskeletal: Reports: No Symptoms Skin: Reports: No Symptoms Neurological: Reports: No Symptoms Psychiatric: Reports: No Symptoms Hematologic/Lymphatic: Reports: No Symptoms Immunologic: Reports: No Symptoms ED EXAM, GENERAL - Physical Exam Exam: See Below Exam Limited By: No Limitations General Appearance: Alert, WD/WN, No Apparent Distress Eye Exam: Bilateral Eye: EOMI, PERRL Head: Atraumatic Respiratory/Chest: No Respiratory Distress, Lungs Clear, Normal Breath Sounds Cardiovascular: Normal Peripheral Pulses, Regular Rate, Rhythm GI/Abdominal: Normal Bowel Sounds, Soft, Non-Tender Extremities: Normal Inspection Neurological: Alert, Oriented Course - Vital Signs Last Recorded V/S: Last Vital Signs Temp 99.6 F 07/31/21 08:21 Pulse 110 H 07/31/21 08:21 Resp 14 07/31/21 08:21 BP 118/76 07/31/21 08:21 Pulse Ox 94 L 07/31/21 08:21 - Orders/Labs/Meds Labs: Laboratory Tests 07/31/21 07/31/21 Range/Units 08:17 09:05 Urine HCG, Qual NEGATIVE (NEGATIVE) Influenza Type A RNA NEGATIVE (NEGATIVE) Influenza Type B RNA NEGATIVE (NEGATIVE) SARS-CoV-2 RNA ([place]) POSITIVE H (NEGATIVE) - Re-Assessments/Exams Free Text/Narrative Re-Assessment/Exam: 07/31/21 09:37 Patient is Covid positive likely cause of her symptoms patient will be discharged home with instructions on how to take care of her self or the next few days. Free Text/Narrative Re-Assessment/Exam: 07/31/21 09:38 Patient oxygen level was 98% on room air the vital signs a 94% but was in the room the machine read at 98% room air. Departure - Departure Time of Disposition: 09:37 Disposition: Home, Self-Care 01 Condition: Good Clinical Impression: COVID-19 - Discharge Information *PRESCRIPTION DRUG MONITORING PROGRAM REVIEWED*: Not Applicable *COPY OF PRESCRIPTION DRUG MONITORING REPORT IN PATIENT SAVAGE: Not Applicable Instructions: 10 Things You Can Do to Manage Your COVID-19 Symptoms at Home - [facility] (03/15/2021) Forms: ED Department Discharge Additional Instructions: You were seen today for body aches. You were found to have Covid. This is likely cause your symptoms. Your oxygen level was good here we recommend you continue to stay hydrated and get a lot of rest at home if you have any concerning signs or symptoms please read return to the ED. The following information is given to patients seen in the emergency department who are being discharged to home. This information is to outline your options for follow-up care. We provide all patients seen in our emergency department with a follow-up referral. The need for follow-up, as well as the timing and circumstances, are variable depending upon the specifics of your emergency department visit. If you don't have a primary care physician on staff, we will provide you with a referral. We always advise you to contact your personal physician following an emergency department visit to inform them of the circumstance of the visit and for follow-up with them and/or the need for any referrals to a consulting specialist. The emergency department will also refer you to a specialist when appropriate. This referral assures that you have the opportunity for follow-up care with a specialist. All of these measure are taken in an effort to provide you with optimal care, which includes your follow-up. Under all circumstances we always encourage you to contact your private physician who remains a resource for coordinating your care. When calling for follow-up care, please make the office aware that this follow-up is from your recent emergency room visit. If for any reason you are refused follow-up, please contact the [facility] Emergency Department at and asked to speak to the emergency department charge nurse. Please follow up with your primary care physician. If you do not have a primary care physician, see below: [facility] [address] [place] [id number] [facility] [address] [place] [address] Sepsis Event Note (ED) - Evaluation Sepsis Screening Result: No Definite Risk - Focused Exam Vital Signs: Vital Signs Temp Pulse Resp BP Pulse Ox 07/31/21 08:21 99.6 F 110 H 14 118/76 94 L - Assessment/Plan Plan: Patient is a 26-year-old female who presents today for diffuse body aches. On exam patient was well she is slightly tacky. We will obtain EKG flu swab and reassess.
[2021-07-31 09:18] LABS: CORONAVIRUS COVID-19 NAA POSITIVE (NEGATIVE); INFLUENZA A NAA NEGATIVE (NEGATIVE); INFLUENZA B NAA NEGATIVE (NEGATIVE)
--- NOTE | 2021-07-31 14:03 | PCM.EKG ---
#1 Interpretation EKG Date: 07/31/21 Time: 08:55 Rhythm: Other (sinus tachy) Rate (Beats/Min): 107 ST-T: Normal
== END 2021-07-31 09:48 | disposition home or self-care (01) ==
LOC: MW.ED 08:15
DX: U07.1 COVID-19 (principal); J45.909 Unspecified asthma, uncomplicated; E03.9 Hypothyroidism, unspecified; Z87.891 Personal history of nicotine dependence; Z79.899 Other long term (current) drug therapy
CPT/HCPCS: 0240U; 81025; 93005; 99283

== ENCOUNTER 2023-08-28 19:19 | Emergency (ER) | payer BC ==
[2023-08-28] MEDS ORDERED: Famotidine 20 MG Tab PO ONE (21:59)
[2023-08-28] MEDS ORDERED: predniSONE 10 MG Tab PO ONE (21:59)
[2023-08-28] MEDS ORDERED: diphenhydrAMINE 50 MG/ML SDV IM ONE (21:59)
== END 2023-08-28 22:37 | disposition home or self-care (01) ==
LOC: MW.ED 19:19
DX: L50.0 Allergic urticaria (principal); J45.909 Unspecified asthma, uncomplicated
CPT/HCPCS: 96372; 99283; A9270; J1200

== ENCOUNTER 2024-03-13 19:33 | Emergency (ER) | payer BC ==
[2024-03-13] MEDS: Sodium Chloride 0.9% 1,000 ML IV ONE (20:26)
[2024-03-13 20:30] LABS: APPEARANCE,URINE CLEAR; BILIRUBIN,URINE NEGATIVE (NEGATIVE); COLOR,URINE YELLOW; GLUCOSE,URINE NEGATIVE (NEGATIVE); KETONES,URINE TRACE mg/dL (NEGATIVE); LEUKOCYTE ESTERASE,URINE NEGATIVE (NEGATIVE); NITRITE,URINE NEGATIVE (NEGATIVE); OCCULT BLOOD,URINE NEGATIVE (NEGATIVE); PH,URINE 7.5 (5.0-8.0); PROTEIN,URINE NEGATIVE (NEGATIVE)
[2024-03-13] MEDS: Ondansetron 4 MG/2 ML SDV IVPUSH ONE (20:34)
[2024-03-13 20:37] LABS: BASOPHILS ABSOLUTE AUTO 0.04 K/uL (0.00-0.20); BASOPHILS PERCENT AUTO 0.4 % (0.0-1.0); EOSINOPHILS ABSOLUTE AUTO 0.05 K/uL (0.00-0.45); EOSINOPHILS PERCENT AUTO 0.5 % (0.0-6.0); HEMATOCRIT 37.3 % (37.0-47.0); HEMOGLOBIN 12.4 g/dL (12.0-16.0); IMMATURE GRAN ABSOLUTE AUTO 0.02 K/uL (0.00-0.05); IMMATURE GRAN PERCENT AUTO 0.2 % (0.0-0.4); LYMPHOCYTES ABSOLUTE AUTO 1.46 K/uL (1.00-4.80); LYMPHOCYTES PERCENT AUTO 13.8 % (24.0-44.0); MEAN CORPUSCULAR HEMOGLOBIN 28.8 pg (28.0-32.0); MEAN CORPUSCULAR HGB CONC 33.2 g/dL (32.0-36.0); MEAN CORPUSCULAR VOLUME 86.5 fL (83.0-99.0); MEAN PLATELET VOLUME 11.2 fL (9.4-12.3); MONOCYTES ABSOLUTE AUTO 0.54 K/uL (0.00-0.80); MONOCYTES PERCENT AUTO 5.1 % (0.0-8.0); NEUTROPHILS ABSOLUTE AUTO 8.46 K/uL (1.80-7.70); PLATELET COUNT,PLT 325 K/uL (150-400); RED BLOOD CELL COUNT 4.31 M/uL (4.10-5.30); WHITE BLOOD CELL COUNT,WBC 10.57 K/uL (3.9-11.3)
[2024-03-13] MEDS: Ketorolac 30 MG/ML SDV IVPUSH ONE (20:43)
[2024-03-13 21:00] LABS: A/G RATIO 1.2 (0.9-1.6); ALBUMIN 3.5 g/dL (3.4-5.0); BILIRUBIN TOTAL 0.3 mg/dL (0.2-1.0); CALCIUM 8.5 mg/dL (8.5-10.1); CARBON DIOXIDE,CO2 26.7 mmol/L (21.0-32.0); CREATININE 0.8 mg/dL (0.6-1.0); EST CRCL DRUG DOSING (CG) 85.06 mL/min; POTASSIUM,K 3.5 mmol/L (3.5-5.1); PROTEIN TOTAL,TP 6.4 g/dL (6.4-8.2)
== END 2024-03-13 21:42 | disposition home or self-care (01) ==
LOC: MW.ED 19:33
DX: B34.9 Viral infection, unspecified (principal); J45.909 Unspecified asthma, uncomplicated; Z90.49 Acquired absence of other specified parts of digestive tract; Z79.899 Other long term (current) drug therapy; Z75.8 Other problems related to medical facilities and other health care
CPT/HCPCS: 36415; 80053; 81003; 81025; 85025; 96361; 96374; 96375; 99284; J1885; J2405; J7030

== ENCOUNTER 2024-03-14 14:31 | Emergency (ER) | payer BC ==
[2024-03-14 15:50] LABS: CORONAVIRUS COVID-19 NAA NEGATIVE (NEGATIVE); INFLUENZA A NAA NEGATIVE (NEGATIVE); INFLUENZA B NAA NEGATIVE (NEGATIVE); RESPIRATORY SYNCYTIAL VIR NAA NEGATIVE (NEGATIVE)
[2024-03-14] MEDS: Acetaminophen 500 MG Tab PO ONE (16:03)
[2024-03-14] MEDS: Sodium Chloride 0.9% 1,000 ML IV ONE ×2 (16:03→17:24)
[2024-03-14 16:44] LABS: BASOPHILS ABSOLUTE AUTO 0.02 K/uL (0.00-0.20); BASOPHILS PERCENT AUTO 0.2 % (0.0-1.0); HEMATOCRIT 39.4 % (37.0-47.0); HEMOGLOBIN 13.2 g/dL (12.0-16.0); IMMATURE GRAN ABSOLUTE AUTO 0.04 K/uL (0.00-0.05); IMMATURE GRAN PERCENT AUTO 0.4 % (0.0-0.4); LYMPHOCYTES ABSOLUTE AUTO 1.07 K/uL (1.00-4.80); LYMPHOCYTES PERCENT AUTO 10.3 % (24.0-44.0); MEAN CORPUSCULAR HEMOGLOBIN 29.4 pg (28.0-32.0); MEAN CORPUSCULAR HGB CONC 33.5 g/dL (32.0-36.0); MEAN CORPUSCULAR VOLUME 87.8 fL (83.0-99.0); MEAN PLATELET VOLUME 11.2 fL (9.4-12.3); MONOCYTES ABSOLUTE AUTO 0.61 K/uL (0.00-0.80); MONOCYTES PERCENT AUTO 5.9 % (0.0-8.0); NEUTROPHILS ABSOLUTE AUTO 8.66 K/uL (1.80-7.70); NEUTROPHILS PERCENT AUTO 83.2 % (41.0-71.0); PLATELET COUNT,PLT 313 K/uL (150-400); RED BLOOD CELL COUNT 4.49 M/uL (4.10-5.30)
[2024-03-14 17:11] LABS: A/G RATIO 1.1 (0.9-1.6); ALBUMIN 3.3 g/dL (3.4-5.0); BILIRUBIN TOTAL 0.3 mg/dL (0.2-1.0); CARBON DIOXIDE,CO2 25.5 mmol/L (21.0-32.0); CREATININE 0.9 mg/dL (0.6-1.0); EST CRCL DRUG DOSING (CG) 75.61 mL/min; POTASSIUM,K 4.1 mmol/L (3.5-5.1); PROTEIN TOTAL,TP 6.3 g/dL (6.4-8.2)
[2024-03-14] MEDS: Ketorolac 30 MG/ML SDV IVPUSH ONE (19:33)
== END 2024-03-14 20:28 | disposition home or self-care (01) ==
LOC: MW.ED 14:31
DX: R50.9 Fever, unspecified (principal); B34.9 Viral infection, unspecified; J45.909 Unspecified asthma, uncomplicated; E03.9 Hypothyroidism, unspecified; Z75.8 Other problems related to medical facilities and other health care; Z90.49 Acquired absence of other specified parts of digestive tract; Z86.16 Personal history of COVID-19; Z79.899 Other long term (current) drug therapy
CPT/HCPCS: 0241U; 36415; 71046; 80053; 85025; 85652; 86140; 86308; 86788; 87651; 96361; 96374; 99284; A9270; J1885; J7030